=== PATIENT | male | born 1950 | race Caucasian/White ===

== ENCOUNTER 2021-10-23 09:57 | Outpatient (CLI) | payer MEDICARE, SELFPAY ==
--- OUTSIDE RECORDS SUMMARY | 2021-10-01 09:49 | XMS_ITS | Continuity of Care Document ---
:1950 Author Care Team Providers Name Role Phone MD Edvin Wheeler Attending Physician MD Edvin Wheeler Primary Care Physician Allergies, Adverse Reactions, Alerts Allergen Type Severity Reaction Last Updated Verified Status No Known Drug Allergy Unknown March Yes Active Allergy 2020 Social History Smoking Status Status Start Date End Date Date of Observat ion Never smoked tobacco April 022020 (finding) 8:56pm Additional Data Assigned Sex Male Problems Active Problems Medical Problem Onset Date Status Hypertension March 05, 2010 Active Hyperlipidemia March 05, 2010 Active Erectile dysfunction Active PSA elevation Active H/O bilateral inguinal hernia March 05, 2010 Resolved repair Medications Medication Status Dose Units Route Directions Qty Days Start End Ins tructions Date Date Amlodipine Active 5 MG PO Daily 90 Decembe Besylate r 2020 8:55am Aspirin Active 81 MG PO Daily 100 Atorvastatin Active 80 MG PO Bedtime 90 Decembe Calcium r 2020 8:55am Fish Oil Active 1000 MG PO Lisinopril Active 40 MG PO Daily 90 Decembe r 2020 8:55am Multiple Active Unknow PO Vitamins W/ n Dose Minerals (Vitamin D3 Complete) Unknown Strength TAB Tadalafil Active 5 MG PO Daily 30 Decembe (Cialis) 5 r 27th, Mg TAB 2020 8:56am Amlodipine Disconti 5 MG PO Daily 90 Februar Decemb Besylate nued y , er 2020, 1:15pm 2020 8:55am Amlodipine Disconti 5 MG PO Daily 90 Decembe Februa Besylate nued r , ry 2019, 8:54am 2020 1:15pm Amlodipine Disconti 5 MG PO Daily 90 January Decemb Besylate nued , er 2019, 4:20pm 2019 8:54am Amlodipine Disconti 5 MG PO Daily 90 August Besylate nued , r 2019, 1:43pm 2019 4:20pm Amlodipine Disconti 5 MG PO Daily 90 August Besylate nued r , , 2018 2019 9:23am 1:43pm Amlodipine Disconti 5 MG PO Daily November Besylate nued , er 2018, 11:23am 2018 9:23am Amlodipine Disconti 5 MG PO Daily 90 April Besylate nued , , 2018 2018 3:57pm 11:23a m Amlodipine Disconti 5 MG PO Daily Aprilua Besylate nued , y 2017, 1:25pm 2018 3:57pm Amlodipine Disconti 5 MG PO Daily 90 mbapruar Besylate nued r , y 2017 01, 1:58pm 2017 1:25pm Amlodipine Disconti 5 MG PO Daily Septembermb Besylate nued , er 2016 04, 12:01pm 2016 1:58pm Amlodipine Disconti 5 MG PO Daily June Besylate nued , , 2016 2016 12:22pm 12:01p m Amlodipine Disconti 5 MG PO Daily 90 June Besylate nued r , , 2015 2016 3:37pm 12:22p m Amlodipine Disconti 5 MG PO Daily 90 Decemb Besylate nued y , er 2015, 11:47am 2015 3:37pm Amlodipine Disconti 5 MG PO Daily 90 e Februa Besylate nued r 17, ry 2014 15th, 10:14am 2015 11:47a m Amlodipine Disconti 2.5 MG PO Daily 90 mbe Decemb Besylate nued r 27, er (Norvasc) 2012 31, 2.5 Mg TAB 10:34am 2013 9:15am Amlodipine Disconti 2.5 MG PO Daily 90 Novem Decemb Besylate nued r , er (Norvasc) 2012 27, 2.5 Mg TAB 11:30am 2012 10:34a m Amlodipine Disconti 2.5 MG PO Daily 90 Februar Novemb Besylate nued y , er ([facility]) 2012 20th, 2.5 Mg TAB 11:23am 2012 11:30a m Amlodipine Disconti 2.5 MG PO Daily Septemberua Besylate nued , ry ([facility]) 2011 12th, 2.5 Mg TAB 4:49pm 2012 11:23a m Amlodipine Disconti 5 MG PO Daily September gene chely [place] Besylate nued er , ([facility]) 14, 2012 Mg TAB 2010 4:49pm 4:09pm Amlodipine Disconti 2.5 MG PO Daily September Besylate nued r , ([facility]) 2010 2011 2.5 Mg TAB 3:59pm 4:49pm Amlodipine Disconti 2.5 MG PO Daily Besylate nued er , er ([facility]) 2010, 2.5 Mg TAB 12:45pm 2010 3:59pm Amlodipine Disconti 2.5 MG PO Daily August Besylate nued , ava ([facility]) 2010 04, 2.5 Mg TAB 9:42am 2010 12:45p m Aspirin Disconti 325 MG PO Daily Decemb nued er 2014 8:36am Atorvastatin Disconti 80 MG PO Bedtime Calcium nued y 17, er 2020, 1:15pm 2020 8:55am Atorvastatin Disconti 80 MG PO Bedtime Calcium nued r , ry 2019, 8:54am 2020 1:15pm Atorvastatin Disconti 80 MG PO Bedtime January Calcium nued th, er 2019, 10:43am 2019 8:54am Atorvastatin Disconti 80 MG PO Bedtime Augustobe P t to take 1 Calcium nued , r full tablet 2019, daily. 1:43pm 2019 10:32a m Atorvastatin Disconti 80 MG PO Bedtime 90 August Pt to take 1 Calcium nued r 17th, 4th, full table t 2018 2019 daily. 9:23am 1:43pm Atorvastatin Disconti 80 MG PO Bedtime November Pt to take 1 Calcium nued 1st, er full tablet 2018, daily. 11:23am 2018 9:23am Atorvastatin Disconti 80 MG PO Bedtime April Pt to take 1 Calcium nued , , full tablet 2018 2018 daily. 3:57pm 11:23a m Atorvastatin Disconti 80 MG PO Bedtime April Pt to take 1 Calcium nued , y full tablet 2017, daily. 1:25pm 2018 3:57pm Atorvastatin Disconti 80 MG PO Bedtime mb Pt to take 1 Calcium nued r 1st, y full tablet 2017 01, daily. 1:58pm 2017 1:25pm Atorvastatin Disconti 80 MG PO Bedtime 90 Junemb P t to take 1 Calcium nued nd, er full tablet 2016 04, daily. 12:01pm 2016 1:58pm Atorvastatin Disconti 40 MG PO Bedtime 30 Decemb Calcium nued er 2016 1:27pm Atorvastatin Disconti 80 MG PO Bedtime June Pt to take 1 Calcium nued r nd, , full table t 2015 2016 daily. 11:33am 12:01p m Atorvastatin Disconti 80 MG PO Bedtime Augustmb P t to take 1 Calcium nued 17th, er full tablet 2015, daily. 11:38am 2015 11:33a m Atorvastatin Disconti 80 MG PO Bedtime 90 August Pt to take 1 Calcium nued y 16th, 17th, full table t 2015 2015 daily. 9:20am 11:38a m Atorvastatin Disconti 80 MG PO Bedtime 90 [facility] Calcium nued r 31st, er (Lipitor) 80 2013 21st, Mg TAB 9:15am 2014 8:39am Atorvastatin Disconti 80 MG PO Bedtime 90 [facility] Calcium nued r 30th, er (Lipitor) 80 2012 31st, Mg TAB 1:39pm 2013 9:15am Atorvastatin Disconti 40 MG PO Bed[facility] Calcium nued r 27th, er 2012 17, 10:33am 2013 9:34am [facility]atin Disconti 40 MG [facility] 17th, er 2011, 8:18am 2012 10:33a m Garlic-Calci Disconti 400 MG OR Decemb um (Garlic) nued er 400 Mg TAB 2016 1:27pm Hydrochlorot Disconti 25 MG PO Daily Decemb hiazide nued er er , 2012 12:25pm 10:34a m Hydrochlorot Disconti 25 MG PO Daily 90 Octoberem hiazide nued , ava 2012, 10:53am 2012 12:25p m Hydrochlorot Disconti 25 MG PO Daily 90 October hiazide nued r 2011 9:47am 10:53a m Hydrochlorot Disconti 25 MG PO Daily Septembermb hiazide nued , er 2011, 4:49pm 2011 9:47am Hydrochlorot Disconti 25 MG PO Daily September hiazide nued 2011 9:56am 4:49pm Hydrochlorot Disconti 25 MG PO Daily August hiazide nued 2010 9:42am 9:56am Influenza Disconti 0.5 ML IM Once 1 mbe Decemb Virus nued r , er Vaccine 2017 , Split 1:41pm 2016 (Fluzone 2:14pm High-Dose Pf 2017 0.5 Ml) 1 Inj INJ Lisinopril Disconti 40 MG PO Daily 90 uar Decemb nued y , er 2020, 1:15pm 2020 8:55am Lisinopril Disconti 40 MG PO Daily 90 e Februa nued r , ry 2019, 8:54am 2020 1:15pm Lisinopril Disconti 40 MG PO Daily January Decemb nued , er 2019, 4:20pm 2019 8:54am Lisinopril Disconti 40 MG PO Daily August nued , r 2019, 1:43pm 2019 4:20pm Lisinopril Disconti 40 MG PO Daily 90 e August nued r , , 2018 2019 9:23am 1:43pm Lisinopril Disconti 40 MG PO Daily November Decemb nued , er 2018, 11:23am 2018 9:23am Lisinopril Disconti 40 MG PO Daily 90 April nued , , 2018 2018 3:57pm 11:23a m Lisinopril Disconti 40 MG PO Daily 90 Aprilr nued , y 2017, 1:25pm 2018 3:57pm Lisinopril Disconti 40 MG PO Daily 90 mbapruar nued r , y 2017 01, 1:58pm 2017 1:25pm Lisinopril Disconti 40 MG PO Daily 90 Junemb nued , er 2017 , 11:59am 2016 1:58pm Lisinopril Disconti 40 MG PO Daily 90 June nued r , , 2015 2016 11:33am 11:59a m Lisinopril Disconti 40 MG PO Daily 90 August nued , er 2016 , 9:28am 2015 11:33a m Lisinopril Disconti 40 MG PO Daily 90 August nued y , , 2015 2015 11:08am 9:28am Lisinopril Disconti 40 MG PO Daily 90 mbua nued r 31, ry 2013 16, 9:14am 2015 11:08a m Lisinopril Disconti 40 MG PO Daily 90 mb [facility] nued r 27, er 2012 31, 10:34am 2013 9:14am Lisinopril Disconti 40 MG PO Daily 90 October nued 18th, er 2012 27, 10:03am 2012 10:34a m Lisinopril Disconti 40 MG PO Daily 90 April nued , , 2012 2012 12:41pm 10:03a m Lisinopril Disconti 40 MG PO Daily 90 September nued , y 2011 14, 4:49pm 2012 12:41p m Lisinopril Disconti 40 MG PO Daily 90 September nued er , 2010 12:45pm 4:49pm Lisinopril Disconti 40 MG PO Daily 30 November nued , 2010, 11:03am 2010 12:45p m Lisinopril Disconti 40 MG PO Daily 30 mbnovember nued r , 2009 9:28am 11:03a m Lisinopril Disconti 20 MG PO Daily August (Zestril) 20 nued r , 9th, Mg TAB 2009 2010 10:20am 8:54am Pneumococcal Disconti 0.5 ML IM Once 1 [facility] Polyvalent nued r , er Vaccine 2014, (Prevnar 13) 9:16am 2014 0.5 Ml INJ 9:24am Pneumococcal Disconti 0.5 ML IM Once 1 [facility] Polyvalent nued r , er Vaccine 2010, (Pneumovax-2 10:08am 2010 3 Multidose 10:25a Vial) 23 m Mcg/0.5 Ml INJ Red Yeast Disconti OR Decemb Rice Extract nued er (Red Yeast , Rice) CAP 2016 1:27pm Rice Yeast Disconti August nued 2010 8:58am Simvastatin Disconti 1 TABLET PO Bedtime June (Zocor) 40 nued , , Mg TAB 2011 2011 11:11am 4:49pm Simvastatin Disconti 1 TABLET PO Bedtime June (Zocor) 40 nued er , , Mg TAB 2010 2011 10:21am 11:11a m Simvastatin Disconti 1 TABLET PO Bedtime September (Zocor) 40 nued 2nd, ava Mg TAB 2010 04, 3:03pm 2010 10:21a m Simvastatin Disconti 1 TABLET PO Bedtime September (Zocor) 40 nued r 30, , Mg TAB 2009 2010 9:34am 3:03pm Tadalafil Disconti 5 MG PO Daily September (Cialis) 5 nued , er Mg TAB 2020, 1:21pm 2020 8:56am Tadalafil Disconti 5 MG PO Daily April (Cialis) 5 nued , , Mg TAB 2020 2020 9:54am 1:21pm Tadalafil Disconti 5 MG PO Daily September (Cialis) 5 nued , y Mg TAB 2019, 3:35pm 2020 9:54am Tadalafil Disconti 5 MG PO Daily September (Cialis) 5 nued r 17th, 5th, Mg TAB 2013 2019 10:12am 3:35pm Tadalafil Disconti 20 MG PO As Needed 8 Decee [facility] TAKE ONE (Cialis) 20 nued r 27th, er TABLET 30 MIN Mg TAB 2012 31, TO 36 HRS 10:33am 2013 PRIOR TO 9:15am INTERCOURSE Tadalafil Disconti 20 MG PO As Needed October TA KE ONE (Cialis) 20 nued 3rd, er TABLET 3 0 MIN Mg TAB 2012, TO 36 HRS 9:35am 2012 PRIOR TO 10:33a INTERCOURSE m Tadalafil Disconti 20 MG PO As Needed September LOUIE E ONE (Cialis) 20 nued 20th, 3rd, TABLET 3 0 MIN Mg TAB 2011 2012 TO 36 HRS 2:19pm 9:35am PRIOR TO INTERCOURSE Tadalafil Disconti 20 MG PO As Needed September T CHARLA ONE (Cialis) 20 nued er 20th, TABLET 3 0 MIN Mg TAB 2011 TO 36 HRS 2010 2:19pm PRIOR TO 4:13pm INTERCOURSE Tetanus-Diph Disconti 0.5 ML IM Once 1 [facility] theria nued r 17th, er Toxoids (Td 2018, (Tetanus/Dip 9:31am 2018 htheria 9:40am Toxoid) 1 Ml INJ Zostavax Disconti 0.65 ML SUBQ Once 1 [facility] nued r 21st, er 2010, 10:10am 2010 10:25a m Immunizations Immunization Event Date Not Given Dose Copier Operator Lot Vac cine Reason Number Number Informatio n Statement (VIS) Deta il COVID-19 Pfizer May 082020 COVID-19 Pfizer June 22, 2020 COVID-19 Pfizer January 17, 2020 Herpes Zoster March 07 Merck [id number] 2010 Influenza December 062013 Influenza January 25, 2014 Influenza December 082015 Influenza March 07 Sanofi 2016 Influenza December 102017 Influenza December 112018 Influenza December 122019 Influenza April 28, 2020 Prevnar Adult March 07 ORTHOM [id number] 2014 Pneumovax Adult March 07 Merck [id number] 2010 Pneumovax Adult December 07 [id number] 2018 Tetanus/Diptheri March 07 MASS BIOLO [id number] a 2018 Tdap July 15 (adolescent/adul 2009 t) Advance Directives Advance Directive Response Recorded Date/Time Does Pt have Health Care No April 05, 2015 9:31am Directive? Has patient completed a N - info provided 03/07/17 March 082020 8:56pm Health Care Directive? Insurance Providers Guarantor [employer] Address [address] [place] [id number] Contact Info. Home Phone: Payer Policy Id Coverage Id Subscriber's Subscriber Id Effective E xpiration Name Date Date Medicare [id number] [employer] [address] [facility] [id number] [employer] [id number] D Plan of Treatment Future Tests Future scheduled test information is unavailable Pending Tests Pending diagnostic test information is unavailable Future Visits Future appointment information is unavailable Referrals to Other Providers Referral information is unavailable Future Procedures Procedure Name Scheduled Date Colonoscopy Screening Future Medications Future medication information is unavailable Patient Instructions Patient instructions are unavailable
== END 2021-10-23 09:58 | disposition home or self-care (01) ==
LOC: OP CLINIC 09:59
PROVIDERS: PCP Family Medicine; Visit Provider Surgery
DX: Z12.11 Encounter for screening for malignant neoplasm of colon (principal); K62.1 Rectal polyp; K57.30 Diverticulosis of large intestine without perforation or abscess without bleeding
CPT/HCPCS: 45385; 88305; 99153; J2250; J3010

== ENCOUNTER 2021-12-03 14:36 | Outpatient (CLI) | payer MEDICARE, SELFPAY ==
[2021-12-03 18:01] LABS: PSA Diagnostic* 4.52 ng/mL (0.10-4.00)
== END 2021-12-03 14:37 | disposition home or self-care (01) ==
LOC: LONREF 14:38
PROVIDERS: PCP Family Medicine; Visit Provider Family Medicine
DX: R97.20 Elevated prostate specific antigen [PSA] (principal)
CPT/HCPCS: 84153

== ENCOUNTER 2021-12-18 23:41 | Emergency (ER) | payer MEDICARE, SELFPAY ==
[2021-12-18 23:46] VITALS: BP 133/104; PULSE 54; RESP 20; O2SAT 99; BMI 31.2
--- NOTE | 2021-12-19 00:12 | CRLHL7_ITS ---
For Patients: As a result of the Century Cures Act, medical imaging exams and procedure reports are released immediately into your electronic medical record. You may view this report before your referring provider. If you have questions, please contact your health care provider. INDICATION: Abdominal pain. Right lower quadrant pain. Nausea, vomiting. Elevated troponin. COMPARISON: None available TECHNIQUE: CT examination of the abdomen and pelvis was performed with the uneventful intravenous administration of 99 cc of Isovue 370 while 3 mm thick axial sections were obtained from the lung bases through the pubic symphysis. Oral contrast was not administered. Please note that all CT scans at this facility use dose modulation, iterative reconstruction, and/or weight-based dosing when appropriate to reduce radiation dose to as low as reasonably achievable. FINDINGS: In the abdomen, the liver, spleen, pancreas, and adrenals are normal in appearance. Incidental note is made of small cortical cysts in the left kidney of no clinical concern. The gallbladder is normal in appearance. The abdominal aorta is normal in caliber with no sign of dilatation. There is no sign of retroperitoneal mass or adenopathy. The stomach, loops of small bowel, and colon in the abdomen are normal in appearance. In the pelvis, the appendix is normal in appearance with no sign of inflammatory process. There is severe sigmoid diverticulosis without evidence of diverticulitis. The loops of small bowel and rectum in the pelvis are otherwise normal in appearance. The prostate is moderately enlarged and is otherwise normal in appearance. The urinary bladder is normal in appearance. There is no sign of pelvic or inguinal mass or adenopathy. There is no sign of free air or free fluid in the abdomen or pelvis. The lung bases are clear. The osseous structures are normal in appearance for the patient`s age. IMPRESSION: Nothing seen to explain the patient`s right lower quadrant pain, nausea, or vomiting. Normal appearance of the appendix and right urinary system. No sign of bowel dilatation or inflammatory process involving the bowel. CT of the abdomen shows incidental finding of left renal cysts. CT of the pelvis shows severe sigmoid diverticulosis with no sign of diverticulitis. Moderate enlargement of the prostate. Please note that all CT scans at this facility use dose modulation, iterative reconstruction, and/or weight-based dosing when appropriate to reduce radiation dose to as low as reasonably achievable. Dictated by Valeriy Lopez MD @ 12/19/2021 3:04:12 AM (Electronically Signed)
--- NOTE | 2021-12-19 00:16 | ED_ITS ---
HPI - General Adult General Date Seen: 12/19/21 Chief complaint: Abdominal Pain Stated complaint: Abdominal pain Time Seen by Provider: 12/18/21 23:46 Source: patient and family Mode of arrival: ambulatory Limitations: no limitations History of Present Illness HPI narrative: Patient is a 71-year-old male who was brought in by his with 1 hour of severe pain in the right side of his abdomen. He was just sitting and watching TV when this came about. In [place] for dinner. No nausea or vomiting. He had a normal bowel movement this morning. He has never had pain like this prev iously. He has been struggling with some pain in his right groin but this clearly separate from that no dysuria, urgency, frequency. No hematuria. No black or bloody stools. No previous abdominal surgery. He has had a previous hernia repair. No fevers or chills. No URI symptoms. He cannot describe the pain other than to say it is severe. Related Data Home Medications Medication Instructions Recorded Confirmed amlodipine 5 mg tablet 5 mg PO DAILY 12/03/21 12/19/21 aspirin 81 mg chewable tablet 81 mg PO DAILY 12/03/21 12/19/21 atorvastatin 80 mg tablet 80 mg PO .Bedtime 12/03/21 12/19/21 cholecalciferol (vitamin D3) 10 10 mcg PO QDAY 12/03/21 12/19/21 mcg (400 unit) capsule glucosamine sulfate 500 mg tablet 500 mg PO QDAY 12/03/21 12/19/21 (Glucosamine) lisinopril 40 mg tablet 40 mg PO DAILY 12/03/21 12/19/21 multivitamin 1 tab PO QDAY 12/03/21 12/03/21 omega 0-lgk-arn-fish oil 1,000 mg 1 cap PO QDAY 12/03/21 12/03/21 (120 mg-180 mg) capsule (Fish Oil) tadalafil 5 mg tablet 5 mg PO DAILY 12/03/21 12/03/21 Previous Rx's Medication Instructions Recorded methylprednisolone 4 mg tablets in See Rx Instructions PO PER PKG DIR 12/12/21 a dose pack (Medrol (Alfred)) #21 ea tramadol 50 mg tablet 50 mg PO Q6H PRN pain #30 tabs 12/12/21 Allergies Allergy/AdvReac Type Severity Reaction Status Date / Time No Known Drug Allergies Allergy Verified 12/19/21 01:57 Review of Systems Status of ROS: Reports: 10 or more systems reviewed and unremarkable except as noted in History and below [facility] Medical History (Updated 12/19/21 @ 03:11 by Rdoolfo Haney MD) Erectile dysfunction High prostate specific antigen (PSA) Hyperlipidemia (03/05/10) Hypertension (03/05/10) Surgical History History of bilateral inguinal hernia repair (03/05/10) Family History Other Colonic polyp Social History Smoking Status: Former smoker Do you use any of these nicotine containing products: None Second hand tobacco smoke exposure: No How often do you have a drink containing alcohol: never AUDIT-C Alcohol total score: 0 Non-prescribed substance use: denies use Exam Narrative: Exam Narrative: Vitals noted. HEENT: Conjunctiva clear. Neck is supple without adenopathy, thyromegaly, carotid bruit. Lungs: Clear to auscultation in all beverly. No wheezes, rales, rhonchi. Heart: Regular rate and rhythm without murmur. Abdomen: He has tenderness in the right mid and lower quadrants. No guarding. No rebound tenderness. Bowel sounds are normal. No palpable masses , specifically no pulsatile. Extremities: No cyanosis or edema. Good distal pulses. Skin: No abnormalities noted of the exposed skin. Neurologic: Awake, alert, fully oriented. Neurologic exam is nonfocal. Const: Vital Signs, click to edit/add: Vital Signs - 24 hr 12/18/21 23:46 12/19/21 01:23 12/19/21 02:00 Pulse Rate [Left P ulse Oximeter] 54 L 86 74 Respiratory Rate 20 14 16 Blood Pressure [Ri ght Upper Arm] 133/104 H 169/114 H 148/89 H Pulse Oximetry 99 99 98 Oxygen Delivery Me thod Room Air Room Air Documenting provider has reviewed patient's vital signs: yes Course Course Hospital Course: Patient was seen and examined. He has significant pain in the right middle and lower quadrants. Fentanyl 50 mcg is ordered and repeated x1. Lab and CT are ordered. The fentanyl did not improve his pain significantly and he was given Dilaudid 0.5 mg. 1 L of normal saline is also ordered. We are waiting for CT as they are currently assisting with a baby being resuscitated which is delaying his imaging studies. EKG showed normal sinus rhythm with a rate of 67. Frequent PVCs. No ischemic changes. Point of care troponin is 0.2. Reevaluation(s) Reevaluation #1: On the way to CT the patient tells numerous times and felt somewhat better. CT of his abdomen was unremarkable. Chest x-ray was also unremarkable. We repeated his point of care troponin as the initial one was mildly elevated. This returned at 0.00. Vital Signs Vital signs: Initial Vital Signs Pulse Rate 54 L 12/18/21 23:46 Respiratory Rate 20 12/18/21 23:46 Blood Pressure 133/104 H 12/18/21 23:46 Blood Pressure Mean 113 12/18/21 23:46 Blood Pressure Position Supine 12/18/21 23:46 Pulse Oximetry 99 12/18/21 23:46 Oxygen Delivery Method 12/18/21 23:46 Vital Signs Pulse Rate 54 L 12/18/21 23:46 Respiratory Rate 20 12/18/21 23:46 Blood Pressure 133/104 H 12/18/21 23:46 Pulse Oximetry 99 12/18/21 23:46 Oxygen Delivery Method 12/18/21 23:46 Pulse Rate 74 12/19/21 02:00 Respiratory Rate 16 12/19/21 02:00 Blood Pressure 148/89 H 12/19/21 02:00 Pulse Oximetry 98 12/19/21 02:00 Oxygen Delivery Method 12/19/21 02:00 Medical Decision Making Lab Data Labs: Lab Results 12/19/21 12/19/21 12/19/21 Range/Units 00:00 00:00 01:25 WBC 10.33 (4.50-11.00) K/uL RBC 4.77 (4.30-5.90) m/uL Hgb 15.1 (13.5-17.5) gm/dL Hct 44.8 (37.0-53.0) % MCV 94 (80-100) fL MCH 32 (26-34) pg MCHC 34 (32-36) gm/dL RDW Coeff of Sandra 12.5 (11.5-15.5) % Plt Count 232 (140-440) K/uL Neut % (Auto) 50.4 (42.0-72.0) % Lymph % (Auto) 38.1 (20-44) % Parker % (Auto) 8.8 (0.0-11.0) % Eos % (Auto) 1.6 (0.0-7.0) % Baso % (Auto) 0.5 (0.0-3.0) % Neut # (Auto) 5.20 (1.7-7.0) K/uL Lymph # (Auto) 3.94 H (0.90-2.90) K/uL Parker # (Auto) 0.90 (0.00-0.90) K/UL Eos # (Auto) 0.17 (0.00-0.50) K/uL Baso # (Auto) 0.05 (0.00-0.30) K/uL Abs Immat Gran (auto) 0.06 (0.00-0.30) K/uL Sodium 138 (135-149) mmol/L Potassium 3.5 L (3.6-5.1) mmol/L Chloride 102 (96-114) mmol/L Carbon Dioxide 25 (20-32) mmol/L BUN 26 (7-30) mg/dL Creatinine 1.0 (0.5-1.5) mg/dL Estimated Creat Clear 74.37 Estimated GFR 80 ml/min Glucose 155 H (60-115) mg/dL Calcium 9.6 (8.4-10.6) mg/dL Total Bilirubin 0.8 (0.1-1.5) mg/dL Direct Bilirubin 0.2 (0.0-0.5) mg/dL AST 34 (12-35) U/L ALT 30 (4-50) U/L Alkaline Phosphatase 81 (40-150) U/L Total Protein 8.3 (6.0-8.3) g/dL Albumin 4.9 (3.3-5.0) g/dL Lipase 80 (23-300) U/L Urine Color Yellow (Yellow) Urine Appearance Clear (Clear) Urine pH 6.0 (5.0-8.5) Ur Specific [place] 1.025 (1.000-1.030) Urine Protein Negative (Negative) Urine Glucose (UA) Negative (Negative) Urine Ketones 2+ A (Negative) Urine Blood Trace-lysed A (Negative) Urine Nitrite Negative (Negative) Urine Bilirubin Negative (Negative) Urine Urobilinogen 0.2 (0.2-1.0) Ur Leukocyte Esterase Negative (Negative) Urine RBC 0-2 (0-2) Urine WBC 0-2 (0-5) Ur Squamous Epith Cells Few (None-Few) Urine Bacteria Few A (None) Urine Mucus Few A (None) Discharge Plan Discharge Clinical Impression: Indigestion Patient Disposition: Home, Self-Care Condition: Improved Additional Instructions: Stephens diet. Push fluids. Tylenol for pain. Gas-X for gas. Follow up if symptoms recur. Prescriptions: No Action aspirin 81 mg tablet,chewable 81 mg PO DAILY multivitamin Tablet 1 tab PO QDAY atorvastatin 80 mg tablet 80 mg PO .Bedtime amlodipine 5 mg tablet 5 mg PO DAILY lisinopril 40 mg tablet 40 mg PO DAILY tadalafil 5 mg tablet 5 mg PO DAILY omega 6-vsm-cwk-fish oil [Fish Oil] 1,000 mg (120 mg-180 mg) capsule 1 cap PO QDAY cholecalciferol (vitamin D3) 10 mcg (400 unit) capsule 10 mcg PO QDAY glucosamine sulfate [Glucosamine] 500 mg tablet 500 mg PO QDAY Rx Instructions: administer with a meal tramadol 50 mg tablet 50 mg PO Q6H PRN (Reason: pain) Qty: 30 1RF methylprednisolone [Medrol (Alfred)] 4 mg tablets,dose pack See Rx Instructions PO PER PKG DIR Qty: 21 0RF Rx Instructions: PO PER PKG DIR Follow Up/Referrals: Pérez Wheeler MD [Primary Care Provider] - [facility]
[2021-12-19] MEDS: fentaNYL 100 MCG/2 ML inj 50 MCG IVP ×2 (00:18→00:54)
[2021-12-19 00:19] LABS: Basophils Absolute Auto 0.05 K/uL (0.00-0.30); Basophils Percent Auto 0.5 % (0.0-3.0); Eosinophils Absolute Auto 0.17 K/uL (0.00-0.50); Eosinophils Percent Auto 1.6 % (0.0-7.0); Hematocrit 44.8 % (37.0-53.0); Hemoglobin* 15.1 gm/dL (13.5-17.5); Immature Granulocytes Abs Auto 0.06 K/uL (0.00-0.30); Lymphocytes Absolute Auto 3.94 K/uL (0.90-2.90); Lymphocytes Percent Auto 38.1 % (20-44); Mean Corpuscular HGB Conc 34 gm/dL (32-36); Mean Corpuscular Hemoglobin 32 pg (26-34); Mean Corpuscular Volume 94 fL (80-100); Monocytes Percent Auto 8.8 % (0.0-11.0); Neutrophils Percent Auto 50.4 % (42.0-72.0); Platelet Count* 232 K/uL (140-440); RDW Coefficient of Variation % 12.5 % (11.5-15.5); Red Blood Count 4.77 m/uL (4.30-5.90); White Blood Count* 10.33 K/uL (4.50-11.00)
[2021-12-19] MEDS: 0.9 % SODIUM CHLORIDE 1000 ml 1,000 ML IV (00:19)
--- NOTE | 2021-12-19 00:26 | CRLHL7_ITS ---
For Patients: As a result of the Century Cures Act, medical imaging exams and procedure reports are released immediately into your electronic medical record. You may view this report before your referring provider. If you have questions, please contact your health care provider. INDICATION: Positive troponin TECHNIQUE: Two view chest. FINDINGS: The lungs are clear. The heart, mediastinum and pulmonary vessels are of normal size. There is no evidence of pleural disease. IMPRESSION: Negative chest. Dictated by Marylin Marrero MD @ 12/19/2021 2:59:51 AM (Electronically Signed)
[2021-12-19 00:27] LABS: Slide Review Reflex No
[2021-12-19 00:31] LABS: Albumin* 4.9 g/dL (3.3-5.0); Chloride* 102 mmol/L (96-114)
[2021-12-19 00:32] LABS: Potassium* 3.5 mmol/L (3.6-5.1); Sodium* 138 mmol/L (135-149)
[2021-12-19 00:34] LABS: Bilirubin Direct* 0.2 mg/dL (0.0-0.5); Bilirubin Total* 0.8 mg/dL (0.1-1.5); Carbon Dioxide* 25 mmol/L (20-32); Est. Creatinine Clearance* 74.37; Estimated Glomerular Filt Rate 80 ml/min
--- NOTE | 2021-12-19 00:34 | ED.NURSE ---
POC troponin ran while prior to receiving MD orders. Result 0.21, MD notified at 1215.
[2021-12-19 00:35] LABS: Alanine Aminotransferase* 30 U/L (4-50); Alkaline Phosphatase* 81 U/L (40-150); Aspartate Amino Transferase* 34 U/L (12-35); Blood Urea Nitrogen* 26 mg/dL (7-30); Calcium* 9.6 mg/dL (8.4-10.6); Glucose* 155 mg/dL (60-115); Lipase* 80 U/L (23-300); Total Protein* 8.3 g/dL (6.0-8.3)
[2021-12-19] MEDS: HYDROmorphone 0.5 mg/0.5 ml inj IVP (01:13)
[2021-12-19 01:23] VITALS: BP 169/114; PULSE 86; RESP 14; O2SAT 99
[2021-12-19] MEDS: ONDANSETRON 2 MG/ML inj 4 MG IVP (01:31)
[2021-12-19 01:38] LABS: Appearance Urine Clear (Clear); Bilirubin Urine Negative (Negative); Blood Urine Trace-lysed (Negative); Color Urine Yellow (Yellow); Glucose Urine Negative (Negative); Ketones Urine 2+ (Negative); Leukocyte Esterase Urine Negative (Negative); Nitrite Urine Negative (Negative); Protein Urine Negative (Negative); Specific Gravity Urine 1.025 (1.000-1.030); Urobilinogen Urine 0.2 (0.2-1.0)
[2021-12-19 01:55] LABS: RBC Urine 0-2 (0-2)
[2021-12-19 01:56] LABS: Bacteria Urine Few; Mucus Urine Few; Squamous Epithelial Cell Urine Few (None-Few); WBC Urine 0-2 (0-5)
[2021-12-19 02:00] VITALS: BP 144/97; BP 148/89; PULSE 70; PULSE 74; RESP 16; O2SAT 97; O2SAT 98
[2021-12-19 03:00] VITALS: BP 136/93; PULSE 64; RESP 16; O2SAT 97
[2021-12-19 03:30] VITALS: BP 111/70; PULSE 76; RESP 16; O2SAT 96
[2021-12-19 03:39] LABS: Troponin, Point-of-Care* 0.21 ng/ml (0.01-0.04)
== END 2021-12-19 03:40 | disposition home or self-care (01) ==
PROVIDERS: Emergency Provider Family Medicine; PCP Family Medicine
DX: R10.9 Unspecified abdominal pain (principal)
CPT/HCPCS: 36415; 71046; 74177; 80048; 80076; 81003; 81015; 83690; 84484; 85025; 87086; 93005; 96374; 96375; 96376; 99284; 99285; J1170; J2405; J3010; J7030; Q9967

== ENCOUNTER 2021-12-27 10:08 | Emergency (ER) | payer MEDICARE, SELFPAY ==
[2021-12-27 10:24] VITALS: BP 124/89; PULSE 84; RESP 18; TEMP 36.1; O2SAT 99; BMI 29.8
--- NOTE | 2021-12-27 10:28 | ED_ITS ---
HPI - General Adult General Time Seen by Provider: 10:45 Date Seen: 12/27/21 Chief complaint: Back Injury/Pain Stated complaint: Severe back pain Time Seen by Provider: 12/27/21 10:28 Source: patient History of Present Illness HPI narrative: Solo is a 71-year-old male past medical history includes hypertension, hyperlipidemia presents emerged department with with worsening lower back pain. Patient states that around 3 weeks ago he developed some right lower back pain. Pain is on the right side lower lumbar area and radiates down his buttock to the top of his right thigh extending to his knee. Patient denies any urinary or bowel incontinence or retention, he has been doctoring with his primary put him on gabapentin as well as steroid taper. He denies any injury 3 weeks ago, he did get back from [place] just recently and was doing fine there. Denies any lower extremity weakness, paresthesia or numbness, he did not sleep at all last night due to the pain. He has been seeing a chiropractor as well over the last 2 weeks. He denies any other concerns at this time. Related Data Home Medications Medication Instructions Recorded Confirmed amlodipine 5 mg tablet 5 mg PO DAILY 12/03/21 12/19/21 aspirin 81 mg chewable tablet 81 mg PO DAILY 12/03/21 12/19/21 atorvastatin 80 mg tablet 80 mg PO .Bedtime 12/03/21 12/19/21 cholecalciferol (vitamin D3) 10 10 mcg PO QDAY 12/03/21 12/19/21 mcg (400 unit) capsule glucosamine sulfate 500 mg tablet 500 mg PO QDAY 12/03/21 12/19/21 (Glucosamine) lisinopril 40 mg tablet 40 mg PO DAILY 12/03/21 12/19/21 multivitamin 1 tab PO QDAY 12/03/21 12/03/21 omega 4-iwl-vlp-fish oil 1,000 mg 1 cap PO QDAY 12/03/21 12/03/21 (120 mg-180 mg) capsule (Fish Oil) tadalafil 5 mg tablet 5 mg PO DAILY 12/03/21 12/03/21 Previous Rx's Medication Instructions Recorded tramadol 50 mg tablet 50 mg PO Q6H PRN pain #30 tabs 12/12/21 methylprednisolone 4 mg tablets in See Rx Instructions PO PER PKG DIR 12/21/21 a dose pack (Medrol (Alfred)) #21 ea oxycodone-acetaminophen 5 mg-325 1 tab PO Q6H PRN pain #10 tabs 12/27/21 mg tablet (Percocet) Allergies Allergy/AdvReac Type Severity Reaction Status Date / Time No Known Drug Allergies Allergy Verified 12/19/21 01:57 Review of Systems Status of ROS: Reports: 10 or more systems reviewed and unremarkable except as noted in History and below [facility] Medical History (Updated 12/27/21 @ 13:11 by Laurent Bell MD) Erectile dysfunction High prostate specific antigen (PSA) Hyperlipidemia (03/05/10) Hypertension (03/05/10) Surgical History History of bilateral inguinal hernia repair (03/05/10) Family History Other Colonic polyp Social History Smoking Status: Former smoker Do you use any of these nicotine containing products: None Second hand tobacco smoke exposure: No How often do you have a drink containing alcohol: never AUDIT-C Alcohol total score: 0 Non-prescribed substance use: denies use service: No Exam Narrative: Exam Narrative: General: Mild distress, sitting comfortably HEENT: Pupils equal round reactive to light, extraocular muscles intact Neck: Supple, full range of motion Lungs: Clear to auscultation bilaterally Heart: Normal sinus rhythm S1-S2 Abdomen: Soft, nontender bowel sounds present Muscle skeletal: Tender to palpation the right lower lumbar paraspinal musculature, L5-S1, nontender to palpation the midline, no step-offs or saddle anesthesia, straight leg raise and crossover at 20? negative bilaterally, +5 strength lower extremities bilaterally, CMS intact. Neuro: Alert, awake and oriented x3, gait within normal limits Const: Vital Signs, click to edit/add: Vital Signs - 24 hr 12/27/21 10:24 Temperature 97.0 F L Pulse Rate [Right Pulse Oximeter] 84 Respiratory Rate 18 Blood Pressure [Ri ght Upper Arm] 124/89 Pulse Oximetry 99 Oxygen Delivery Me thod Room Air Course Course Hospital Course: 10:30 AM: AIDET performed. No worrisome findings on exam, plan to place IV, 50 mg IV Toradol and 4 mg IV morphine for his pain, will be able to set up a MR lumbar spine without contrast, likely discharge home. Patient and were in agreement Reevaluation(s) Reevaluation #1: MRI lumbar spine without contrast: 1. At L2-3, right subarticular cranial disc extrusion displacing/compressing the transiting right L2 nerve root. Superimposed disc bulge and facet arthropathy contribute to moderate spinal canal stenosis at this level. 2. Additional mild spondylitic changes and mild foraminal narrowing elsewhere as detailed. patient was given additional 10 mg IV Decadron, 5 mg IV Valium for pain. To add 0.5 mg IV Dilaudid if no improvement. Plan have patient see Ivory JO the next few days for consideration for spinal injection. Reevaluation #2: Patient is feeling better after above care given, he is ambulating with no difficulties, a followup appointment was scheduled with his primary care provider tomorrow at 11:15 a.m., proper referrals can be made at that time, will continue with tramadol 5200 mg every 6 hours as needed for pain, he was given a short course of Percocet 5/325 mg, 1 tablet every 4-6 hours for breakthrough pain. Reasons to return were given. Time: 13:09 Vital Signs Vital signs: Initial Vital Signs Temperature 97.0 F L 12/27/21 10:24 Temperature Source Temporal Artery Scan 12/27/21 10:24 Pulse Rate 84 12/27/21 10:24 Respiratory Rate 18 12/27/21 10:24 Blood Pressure 124/89 12/27/21 10:24 Blood Pressure Mean 100 12/27/21 10:24 Blood Pressure Position Sitting 12/27/21 10:24 Pulse Oximetry 99 12/27/21 10:24 Oxygen Delivery Method 12/27/21 10:24 Vital Signs Temperature 97.0 F L 12/27/21 10:24 Pulse Rate 84 12/27/21 10:24 Respiratory Rate 18 12/27/21 10:24 Blood Pressure 124/89 12/27/21 10:24 Pulse Oximetry 99 12/27/21 10:24 Oxygen Delivery Method 12/27/21 10:24 Temperature 97.0 F L 12/27/21 10:24 Pulse Rate 84 12/27/21 10:24 Respiratory Rate 18 12/27/21 10:24 Blood Pressure 124/89 12/27/21 10:24 Pulse Oximetry 99 12/27/21 10:24 Oxygen Delivery Method 12/27/21 10:24 Discharge Plan Discharge Clinical Impression: Intervertebral disc extrusion, Compression of lumbar nerve root Patient Disposition: Home, Self-Care Condition: Improved Instructions: Lower Back Exercises (ED) Additional Instructions: Pt has Follow up appt on Tuesday, December 28, [address] Wheeler at the [facility] with check in time at 11:15am Prescriptions: New oxycodone-acetaminophen [Percocet] 5-325 mg tablet 1 tab PO Q6H PRN (Reason: pain) Qty: 10 0RF No Action aspirin 81 mg tablet,chewable 81 mg PO DAILY multivitamin Tablet 1 tab PO QDAY atorvastatin 80 mg tablet 80 mg PO .Bedtime amlodipine 5 mg tablet 5 mg PO DAILY lisinopril 40 mg tablet 40 mg PO DAILY tadalafil 5 mg tablet 5 mg PO DAILY omega 9-npz-zpa-fish oil [Fish Oil] 1,000 mg (120 mg-180 mg) capsule 1 cap PO QDAY cholecalciferol (vitamin D3) 10 mcg (400 unit) capsule 10 mcg PO QDAY glucosamine sulfate [Glucosamine] 500 mg tablet 500 mg PO QDAY Rx Instructions: administer with a meal tramadol 50 mg tablet 50 mg PO Q6H PRN (Reason: pain) Qty: 30 1RF methylprednisolone [Medrol (Alfred)] 4 mg tablets,dose pack See Rx Instructions PO PER PKG DIR Qty: 21 0RF Rx Instructions: PO PER PKG DIR Follow Up/Referrals: Pérez Wheeler MD [Primary Care Provider] - Stand Alone Forms: MyHealth Info Instructions
--- NOTE | 2021-12-27 10:41 | CRLHL7_ITS ---
For Patients: As a result of the Century Cures Act, medical imaging exams and procedure reports are released immediately into your electronic medical record. You may view this report before your referring provider. If you have questions, please contact your health care provider. Indication: Low back pain, right lumbar radiculopathy Technique: Multiplanar, multisequence, MRI of the lumbar spine, obtained without contrast. Comparison: CT abdomen 12/19/2021 Findings: The lumbar lordosis is preserved. Grade 1 anterolisthesis at L2-3. Visualized vertebral body heights are grossly maintained. No evidence of acute fracture or focal compression deformity. Intrinsic bone marrow signal appears within normal limits. No aggressive osseous lesions. The conus medullaris terminates at approximately L1. No suspicious findings in the prevertebral and paraspinal soft tissues. Bilateral renal cysts. Included SI joints are unremarkable. T12-L1: No significant neural foramen or spinal canal stenosis. L1-L2: Shallow disc bulge. No significant foraminal or spinal canal stenosis. L2-L3: Right subarticular cranial disc extrusion contacting/compressing the transiting right L2 nerve root. Superimposed diffuse disc bulge and facet arthropathy, with mild bilateral foraminal narrowing and moderate spinal canal stenosis. L3-L4: Diffuse disc bulge. Mild left foraminal narrowing. No spinal canal stenosis. L4-L5: Diffuse disc bulge, facet arthropathy. Mild left foraminal narrowing. No spinal canal stenosis. L5-S1: Diffuse disc bulge, facet arthropathy. Mild bilateral foraminal narrowing. No spinal canal stenosis. Impression: 1. At L2-3, right subarticular cranial disc extrusion displacing/compressing the transiting right L2 nerve root. Superimposed disc bulge and facet arthropathy contribute to moderate spinal canal stenosis at this level. 2. Additional mild spondylitic changes and mild foraminal narrowing elsewhere as detailed. Dictated by Jordana Mitchell MD @ 12/27/2021 11:40:40 AM (Electronically Signed)
[2021-12-27] MEDS: MORPHINE 4 MG/ML INJ IVP (11:32)
[2021-12-27] MEDS: KETOROLAC 15 MG/ML inj IVP (11:32)
[2021-12-27] MEDS: dexAMETHasone 10 MG/ML inj IVP (11:55)
[2021-12-27] MEDS: diazePAM 5 MG/ML inj IV (11:55)
[2021-12-27] MEDS: HYDROmorphone 0.5 mg/0.5 ml inj IVP (12:16)
== END 2021-12-27 13:40 | disposition home or self-care (01) ==
PROVIDERS: Emergency Provider Student in an Organized Health Care Education/Training Program; PCP Family Medicine
DX: M51.26 Other intervertebral disc displacement, lumbar region (principal); M51.06 Intervertebral disc disorders with myelopathy, lumbar region
CPT/HCPCS: 72148; 96374; 96375; 99283; 99284; J1100; J1170; J1885; J2270; J3360

== ENCOUNTER 2023-01-02 15:17 | Outpatient (CLI) | payer MEDICARE, SELFPAY ==
--- NOTE | 2023-01-02 15:30 | CRLHL7_ITS ---
For Patients: As a result of the Century Cures Act, medical imaging exams and procedure reports are released immediately into your electronic medical record. You may view this report before your referring provider. If you have questions, please contact your health care provider. Indication: Low back pain. Technique: Multiplanar, multisequence MRI of the lumbar spine was performed without intravenous contrast. Comparison: None relevant available. Findings: There are 5 lumbar type vertebral segments identified. The vertebral body heights are maintained without evidence of fracture. There is no discrete T1 hypointense marrow infiltrating process. The conus medullaris terminates at L1, normal. Cauda equina appears unremarkable. T12-L1: No spinal canal or neural foraminal stenosis. L1-2: Disc degeneration. Minimal disc bulge with minimal spinal canal narrowing. No neural foramina. Mild facet arthropathy. Stable. L2-3: Disc degeneration. Disc bulge coupled with ligamentum flavum thickening and facet hypertrophy result in moderate spinal canal narrowing. Previously noted right subarticular disc extrusion is no longer present. [id number] right and mild left neural foraminal narrowing. Moderate facet arthropathy. L3-4: Disc degeneration. No spinal canal narrowing. Mild neural foraminal narrowing. Mild facet arthropathy. Stable. L4-5: Disc degeneration. Disc bulge coupled with facet hypertrophy results in mild spinal canal narrowing. Mild neural foraminal narrowing. Moderate facet arthropathy. Stable L5-S1: Disc degeneration. No spinal canal narrowing. Mild neural foraminal narrowing. Stable. Mild sacroiliac joint osteoarthritis. Impression: 1. At L2-3, previously noted right subarticular disc extrusion has resolved. Persistent disc degeneration with resultant moderate spinal canal narrowing. 2. Stable milder spondylosis at the remaining lumbar levels. Dictated by Jaleel Llamas MD @ 01/04/2023 2:20:48 PM (Electronically Signed)
== END 2023-01-02 15:18 | disposition home or self-care (01) ==
LOC: MRI 15:20
PROVIDERS: PCP Family Medicine; Visit Provider Physical Medicine & Rehabilitation
DX: M54.50 Low back pain, unspecified (principal); M47.896 Other spondylosis, lumbar region
CPT/HCPCS: 72148

== ENCOUNTER 2023-03-24 09:47 | Outpatient (CLI) | payer MEDICARE, SELFPAY | END 2023-03-24 09:48 | disposition home or self-care (01) | PROVIDERS: PCP Family Medicine; Visit Provider Family Medicine | DX: Z00.00 Encounter for general adult medical examination without abnormal findings (principal); I10 Essential (primary) hypertension; E78.5 Hyperlipidemia, unspecified; R63.5 Abnormal weight gain; Z12.5 Encounter for screening for malignant neoplasm of prostate; Z13.29 Encounter for screening for other suspected endocrine disorder | CPT/HCPCS: 80048; 80061; 84153; 84443 ==

== ENCOUNTER 2024-03-26 10:19 | Outpatient (CLI) | payer MEDICARE, SELFPAY | END 2024-03-26 10:20 | disposition home or self-care (01) | PROVIDERS: PCP Family Medicine; Visit Provider Family Medicine | DX: I10 Essential (primary) hypertension (principal); E78.5 Hyperlipidemia, unspecified; R97.20 Elevated prostate specific antigen [PSA]; E78.00 Pure hypercholesterolemia, unspecified | CPT/HCPCS: 80048; 80061; 84153 ==

== ENCOUNTER 2024-08-05 13:27 | Outpatient (CLI) | payer MEDICARE, SELFPAY ==
--- NOTE | 2024-08-05 13:00 | MR_ITS ---
EXAM: MR PROSTATE WITHOUT AND WITH CONTRAST CLINICAL INFORMATION: Prostate cancer. COMPARISON: None. TECHNICAL INFORMATION: Examination was performed on a 1.5T magnet. High- resolution T1 axial, T2 axial, T2 FSE sagittal and T2 FSE coronal images were obtained through the prostate gland and seminal vesicles. Diffusion images were obtained in the axial plane. 15 mL of Dotarem were injected with dynamic enhanced images of the prostate gland in the axial plane. T1 fat saturation sagittal and coronal images were obtained postinjection. Images were analyzed with 3-D postprocessing online under concurrent physician supervision using a separate [employer] workstation. INTERPRETATION: The prostate gland measures 5.4 x 4.6 x 3.6 cm (TV x AP x SI) for an estimated volume of 44 cc. Transitional and central zones: There is mild glandular and stromal hyperplasia with well encapsulated BPH nodules (PI-RADS 2). Additionally: Lesion 1: Location: Right midgland TZ (Se 8 Im 16), at 10-12 o'clock position, 20 mm anterolateral to the prostatic urethra. Description: Homogeneous T2 hypointensity with marked diffusion restriction and washout hypervascularity measures 2.0 x 1.3 x 2.4 cm (TV x AP x SI) for an estimated volume of 3.7 cc. The lesion makes broad capsular contact; transcapsular extension cannot be excluded. PI-RADS: 5 Peripheral zones: Lesion 2: Location: Left midgland PZ (Se 8 Im 16), at 3-4 o'clock position, 20 mm posterolateral to the prostatic urethra. Description: Homogeneous T2 hypointensity with marked diffusion restriction and washout hypervascularity measures 2.0 x 0.8 x 2.1 cm (TV x AP x SI) for an estimated volume of 2.3 cc. The lesion makes broad capsular contact; perineural extension cannot be excluded. PI-RADS: 5 Pelvis: The seminal vesicles appear intact. No evident bone marrow disease. A left lower obturator node (Se 11 Im 5) measures 1.0 x 0.8 cm, indeterminate. CONCLUSION: * Two very highly suspicious (PI-RADS 5) lesions are present, one in the right- anterolateral TZ and one in the left-posterolateral PZ. Transcapsular/perineural extension cannot be excluded at either site. * A left lower obturator node measures 1.0 x 0.8 cm, indeterminate for lila metastasis. * No skeletal lesions detected. PI-RADS Assessment Categories: Score 1 = very low; clinically significant disease highly unlikely Score 2 = low; clinically significant disease is unlikely Score 3 = intermediate; clinically significant disease is equivocal Score 4 = high; clinically significant disease is likely Score 5 = very high; clinically significant disease is highly likely Electronically signed on 08/07/2024 8:48:00 AM by David Michel M.D.
== END 2024-08-05 13:28 | disposition home or self-care (01) ==
LOC: MRI 13:30
PROVIDERS: PCP Family Medicine; Visit Provider Nurse Practitioner
DX: C61 Malignant neoplasm of prostate (principal); R19.00 Intra-abdominal and pelvic swelling, mass and lump, unspecified site
CPT/HCPCS: 72197; A9575

== ENCOUNTER 2024-10-04 10:39 | Emergency (ER) | payer MEDICARE, SELFPAY ==
--- OUTSIDE RECORDS SUMMARY | 2024-08-24 13:59 | XMS_ITS | Encounter Summary ---
Author Organization [facility] Address [address] [place] [address] Care Team Providers Care Standard Machine Stitcher Name Role Phone Unavailable Primary Care Provider Unavailabl e Encounter Details Date Type Department Care Team (Latest Contact Info) Description 08/24/2024 1:59 PM CDT - 08/24/2024 11:59 PM CDT Hospital Encounter Department of Laboratory Medicine in [place], [place] [address] [place] [phone] Thang Potts M.D. 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 12/03/2021 atorvastatin (Lipitor) 80 mg tablet Take 1 tablet by mouth at bedtime. cholecalciferol, vitamin D3, 10 mcg (400 unit) capsule Take 10 mcg by mouth. 12/03/2021 lisinopriL 40 mg tablet Take 1 tablet by mouth daily. omega 5-dog-raa-fish oil 1,000 mg (120 mg-180 mg) capsule Take 1 capsule by mouth. 12/03/2021 zinc acetate (Galzin) 25 mg (zinc) capsule Take 25 mg by mouth. 12/28/2021 documented as of this encounter Plan of Treatment Upcoming Encounters Date Type Department Care Team (Late st Contact Info) Description 10/07/2024 8:40 AM CDT Comprehensive Visit Department of Oncology in [place], [place] [address] [place] [phone] Stephanie Gracia M.D. [address] [place] [phone] 11/04/2024 12:30 PM CDT Infusion Department of Infusion Therapy in [place], [place] [address] [place] [phone] Amy Hinton APRN, C.N.P., D.N.P. [address] [place] [phone] documented as of this encounter Procedures Procedure Name Priority Date/Time Associated Diagnosis Comments PROTHROMBIN TIME (PT), P Routine 08/24/2024 2:18 PM CDT Primary Malignant Neoplasm Of Prostate (HCC) PLATELETS, B Routine 08/24/2024 2:18 PM CDT Mass Hepatic documented in this encounter Results * Prothrombin Time (PT) (08/24/2024 2:18 PM CDT) Prothrombin Time, P 10.6 9.4 - 12.5 sec 08/24/2024 3:43 PM CDT NPRG INR 1.0 0.9 - 1.1 08/24/2024 3:43 PM CDT NPRG Comment: ----ADDITIONAL INFORMATION---- Standard intensity warfarin therapeutic range: 2.0 to 3.0 High intensity warfarin therapeutic range: 2.5 to 3.5 Blood (Blood, Venous) 08/24/2024 2:18 PM CDT 08/24/2024 3:31 PM CDT Sol Lopez APRN, C.N.P. LAB BLOOD ADD-ON Fin al Result [facility] [address] [place] [address], [facility] NPRG [place] [address] [place] [address] * Platelet Count (08/24/2024 2:18 PM CDT) Pathologist [facility] Platelet Count [id number] - 317 x10(9)/L 08/24/2024 4:06 PM CDT NPRG Blood (Blood, Venous) 08/24/2024 2:18 PM CDT 08/24/2024 3:32 PM CDT us Thang Potts M.D. LAB BLOOD ADD-ON Final R esult [facility] [address] [place] [address], [facility] NPRG [place] [address] [place] [address] documented in this encounter Visit Diagnoses Diagnosis Mass Hepatic Primary Malignant Neoplasm Of Prostate (HCC) documented in this encounter
--- OUTSIDE RECORDS SUMMARY | 2024-08-31 07:10 | XMS_ITS | Encounter Summary ---
Author Organization [facility] Address [address] [place] [address] Care Team Providers Care Director Global Development Name Role Phone Unavailable Primary Care Provider Unavailabl e Reason for Referral * Outpatient (Routine) - Closed Specialty Diagnoses / Procedures Referred By Phillip faulkner Referred To Contact Diagnoses Primary Malignant Neoplasm Of Prostate (HCC) Mass Hepatic Procedures US Liver Biopsy Thang Potts M.D. [address] [place] [address] Phone: tel: fax: [facility] Referral ID Status Reason Start Date Expiration Date Visits Re quested Visits Authorized [id number] Closed 08/18/2024 11/18/2025 1 1 Reason for Visit * Outpatient (Routine) - Closed Specialty Diagnoses / Procedures Referred By Phillip faulkner Referred To Contact Diagnoses Primary Malignant Neoplasm Of Prostate (HCC) Mass Hepatic Procedures US Liver Biopsy Thang Potts M.D. [address] [place] [address] Phone: tel: fax: [facility] Referral ID Status Reason Start Date Expiration Date Visits Re quested Visits Authorized [id number] Closed 08/18/2024 11/18/2025 1 1 Encounter Details Date Type Department Care Team (Latest Contact Info) Description 08/31/2024 7:10 AM CDT - 08/31/2024 10:45 AM CDT Hospital Encounter Department of Radiology, [facility] in [place], [place] [address] [place] [address] Thang Potts M.D. 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 - 08/27/2024 4:59 PM CDT May restart aspirin 24 hours post biopsy Care for the site: Keep dressing in place over site for 24 hours. 24 hours after procedure, it is okay to shower. Remove the dressing, clean and rinse the puncture site gently with soap and water and dry thoroughly. Reapply a Band-Aid to the puncture site or leave open to air. Do not submerge puncture site in water such as tub bathing or swimming until completely healed. Activity: No vigorous activities for 24-48 hours. Do not lift, push, or pull anything greater than 10 lb for 1 week. Seeking emergency care: Contact your health care provider immediately or seek emergency care for the following symptoms: A temperature of 101 degrees Fahrenheit (38.3 degrees Celsius) or higher Chills Severe abdominal pain Drainage that has blood in it for more than 24 hours. For nonemergent questions or concerns: If you have questions related to the procedure, please contact the [facility] airconditioning plant operator ([phone]) and ask to be connected to the non-vascular interventional radiology fellow demolition crane operator documented in this encounter Medications at Time of Discharge [...] Take 1 tablet by mouth daily. omega 0-vsx-qol-fish oil 1,000 mg (120 mg-180 mg) capsule Take 1 capsule by mouth. 12/03/2021 zinc acetate (Galzin) 25 mg (zinc) capsule Take 25 mg by mouth. 12/28/2021 documented as of this encounter Plan of Treatment Upcoming Encounters Date Type Department Care Team (Late st Contact Info) Description 10/07/2024 8:40 AM CDT Comprehensive Visit Department of Oncology in [place], [place] [address] [place] [address] Stephanie Gracia M.D. [address] [place] [address] 11/04/2024 12:30 PM CDT Infusion Department of Infusion Therapy in [place], [place] [address] [place] [address] Amy Hinton APRN, C.N.P., D.N.P. [address] [place] [address] documented as of this encounter Procedures Procedure Name Priority Date/Time Associated Diagnosis Comments US LIVER BIOPSY RAD - Routine (most inpatients and all outpatients) 08/31/2024 8:46 AM CDT Primary Malignant Neoplasm Of Prostate (HCC) Mass Hepatic CYTOLOGY FINE NEEDLE ASPIRATION (INCLUDES CORE BIOPSIES Timed 08/31/2024 8:19 AM CDT Primary Malignant Neoplasm Of Prostate (HCC) Mass Hepatic documented in this encounter Results * US Liver Biopsy (08/31/2024 8:46 AM CDT) Anatomical Region Laterality Modality Abdomen, Ultrasound RST LOS, Ultrasound ARZ LOS, Procedure FLA LOS, Abdominal FLA LOS, Procedural, Procedural NWWI LOS N/A Ultrasound Impressions 08/31/2024 9:07 AM CDT Ultrasound-guided liver mass biopsy. NR Narrative 08/31/2024 9:07 AM CDT EXAM: US LIVER BIOPSY PRE-PROCEDURE: Patient seen, evaluated, history reviewed, and approved for sedation. Airway, heart, and lung exam satisfactory for sedation. Discussed risks, benefits, alternatives for procedure, and/or sedation. The roles and responsibilities of care team members, residents, and fellows were discussed. Patient understands information and questions answered. Informed consent obtained from the patient. Immediately prior to starting the procedure, in the presence of the assisting personnel, a procedural pause was conducted to verify correct patient identity and verification of procedure to be performed, and as applicable, correct side and site, correct patient position, availability of implants, special equipment, or special requirements, and all image and specimen identification data. INTRAPROCEDURE: Moderate sedation was administered by sedation nurse under my supervision. The patient was continuously monitored with real time oxygen saturation, heart rate, ECG rhythm strip and blood pressure throughout administration of the sedation and performance of the procedure. The total intra-procedural sedation time was: 9 minutes. TECHNIQUE: Sterile. 1% lidocaine for local anesthesia. US guidance. Location: 2.8 cm x 2.5 cm x 2.3 cm hypoechoic right hepatic lobe mass likely corresponds to the largest of the numerous hepatic masses seen on MR abdomen 08/11/2024 (series 4 image 11) Needle size: 18-gauge core needle biopsies obtained via 17-gauge introducer needle Number of passes: 4 Complication: None. Blood loss: None. PATIENT INSTRUCTIONS: Patient may be dismissed from the radiology department when dismissal criteria met. POST-PROCEDURE DIAGNOSIS: Liver masses Procedure Note Thiago Juarez M.D. - 08/31/2024 EXAM: US LIVER BIOPSY PRE-PROCEDURE: Patient seen, evaluated, history reviewed, and approved forsedation. Airway, heart, and lung exam satisfactory for sedation.Discussed risks, benefits, alternatives for procedure, and/or sedation.The roles and responsibilities of care team members, residents, and fellows were discussed. Patient understandsinformation and questions answered. Informed consent obtained from thepatient. Immediately prior to starting the procedure, in the presence ofthe assisting personnel, a procedural pause was conducted to verify correct patient identity and verificationof procedure to be performed, and as applicable, correct side and site,correct patient position, availability of implants, special equipment, orspecial requirements, and all image and specimen identification data. INTRAPROCEDURE: Moderate sedation was administered by sedation nurse undermy supervision. The patient was continuously monitored with real timeoxygen saturation, heart rate, ECG rhythm strip and blood pressurethroughout administration of the sedation and performance of the procedure. The total intra-procedural sedation timewas: 9 minutes. TECHNIQUE: Sterile. 1% lidocaine for local anesthesia. US guidance. Location: 2.8 cm x 2.5 cm x 2.3 cm hypoechoic right hepatic lobe masslikely corresponds to the largest of the numerous hepatic masses seen onMR abdomen 08/11/2024 (series 4 image 11) Needle size: 18-gauge core needle biopsies obtained via 17-gaugeintroducer needle Number of passes: 4 Complication: None. Blood loss: None. PATIENT INSTRUCTIONS: Patient may be dismissed from the radiologydepartment when dismissal criteria met. POST-PROCEDURE DIAGNOSIS: Liver masses IMPRESSION: Ultrasound-guided liver mass biopsy. NR us Thang Potts M.D. IM US PROCEDURES Final Result * (ABNORMAL) Cytology Fine Needle Aspiration (including core biopsies) (08/31/2024 8:19 AM CDT) (A) 5 11:07 AM CDT DTL Disclaimer This test was developed and its performance characteristics determined by [facility] in a manner consistent with CLIA requirements. This test has not been cleared or approved by the U.S. Food and Drug Administration. Test results for (IHC or JULIO) testing are valid for specimens fixed between 6 and 72 hours. Delay to fixation, under fixation or over fixation fall outside of guidelines and may affect these results. (A) 09/06/2024 11:07 AM CDT DTL Report electronically signed by Jon Campbell M.D. I verify that I have examined all relevant slides/materials for the specimen(s) and rendered or confirmed the diagnosis. (A) 09/06/2024 11:07 AM CDT DTL Gross Description Received 4 alcohol-fixed smears and tissue. Additionally, received in formalin labeled with the patient's name, medical record number and liver, mass are four pale mahmood-mahmood-red softtissue cores, measuring 0.1 cm in average diameter and ranging from 1.6-2.1 cm in length. Specimens are submitted en toto in cassettesA1-A2, two cores in each cassette. Grossed by ARG. (A) 09/06/2024 11:07 AM CDT DTL Source A. Liver, Mass, fine needle aspiration(A) 09/06/2024 11:07 AM CDT DTL Interpretation A. Liver, Mass, fine needle aspiration (smears/core biopsy): Positive for malignancy. Findings most consistent with Metastatic melanoma. Immunohistochemica l stains were performed at [facility] (block A1). the neoplastic cells are positive for S100, SOX10 and Melan A. The neoplastic cells are negative for AE1/AE3, NKX3.1, PSA, PACP, KRT ROSALINA, CD31, NUT, Desmin, BRAF and chromogranin. INI 1 is retained. (A) 09/06/2024 11:07 AM CDT DTL Tissue (Liver) 08/31/2024 8: 19 AM CDT us Thang Potts M.D. LAB SURG PATH ORDERABLES Final Result [facility] [address] [place] [address], [facility] DTL [address] [facility] [address] [place] [address] * Prothrombin Time (PT) (08/24/2024 2:18 PM CDT) Prothrombin Time, P 10.6 9.4 - 12.5 sec 08/24/2024 3:43 PM CDT NPRG INR 1.0 0.9 - 1.1 08/24/2024 3:43 PM CDT NPRG Comment: ----ADDITIONAL INFORMATION---- Standard intensity warfarin therapeutic range: 2.0 to 3.0 High intensity warfarin therapeutic range: 2.5 to 3.5 Blood (Blood, Venous) 08/24/2024 2:18 PM CDT 08/24/2024 3:31 PM CDT us Sol Lopez APRN, C.N.P. LAB BLOOD ADD-ON Fin al Result [facility] [address] [place] [address], [place] NPRG [facility] [address] [place] [address] documented in this encounter Visit Diagnoses Diagnosis Primary Malignant Neoplasm Of Prostate (HCC)- Primary Mass Hepatic documented in this encounter Administered Medications Inactive Administered Medications - up to 3 most recent administrations Medication Order MAR Action Action Date Dose Rate Site acetaminophen tablet 1,000 mg (TylenoL) 1,000 mg, oral, Once as needed, mild pain or score 1-3 of 10, headaches, Starting on Fri08/31/24 at 0850, For 1 dose, (not to exceed 4 grams in 24 hours) Given 08/31/2024 9:22 AM CDT 1,000 mg fentaNYL injection 25 mcg (Sublimaze) 25 mcg, intravenous, Once as needed, sedation, Starting on Fri08/31/24 at 0808, For 1 dose, Intraprocedure (RAD), IV Push fentaNYL injection 25 mcg (Sublimaze) 25 mcg, intravenous, Every 2 min PRN, sedation, Administer over 1 minute immediately prior to the procedure. May repeat every 2 minutes to a maximum of 200 mcg, until pain score of 3 or less, or until the patient meets the pain comfort goal, or RASS 0 to -2. Do not give if respiratory rate is less than 8 breaths/minute., Starting on Fri08/31/24 at 0808, Intraprocedure (RAD), Subsequent doses Given 08/31/2024 8:38 AM CDT 25 mcg Given 08/31/2024 8:36 AM CDT 25 mcg flumazeniL injection 0.2 mg (Romazicon) 0.2 mg, intravenous, Once as needed, reversal, Starting on Fri08/31/24 at 0808, For 1 dose, Intraprocedure (RAD), Administer once if patient has a RASS score of -4, -5 and has a respiratory rate less than 8 breaths/minute. Lactated Ringer's 20 mL/hr, intravenous, Once as needed, to keep vein open, Starting on Fri08/31/24 at 0808, For 1 dose, Intraprocedure (RAD) New Bag 08/31/2024 8:13 AM CDT 20 mL/hr 20 mL/hr lidocaine 10 mg/mL (1 %) injection (Xylocaine) As needed, Starting on Fri08/31/24 at 0839, Intra-Op Given 08/31/2024 8:39 AM CDT 10 mL Abdominal Tissue midazolam (PF) injection 0.25 mg (Versed) 0.25 mg, intravenous, Every 2 min PRN, sedation, RASS -2, Starting on Fri08/31/24 at 0808, Intraprocedure (RAD), May repeat every 2 minutes to a maximum of 5 mg. Do not give if respiratory rate is less than 8 breaths/minute. midazolam (PF) injection 0.5 mg (Versed) 0.5 mg, intravenous, Once as needed, sedation, Starting on e 08/31/24 at 0808, For 1 dose, Intraprocedure (RAD) midazolam (PF) injection 0.5 mg (Versed) 0.5 mg, intravenous, Every 2 min PRN, sedation, RASS -1, Starting on Fri08/31/24 at 0808, Intraprocedure (RAD), May repeat every 2 minutes for a maximum of 5 mg. Do not give if respiratory rate is less than 8 breaths/minute. Given 08/31/2024 8:38 AM CDT 0.5 mg midazolam (PF) injection 1 mg (Versed) 1 mg, intravenous, Every 2 min PRN, sedation, RASS 0, Starting on Fri08/31/24 at 0808, Intraprocedure (RAD), May repeat every 2 minutes for a maximum of 5 mg. Do not give if respiratory rate is less than 8 breaths/minute. Given 08/31/2024 8:36 AM CDT 1 mg naloxone injection 0.2 mg (Narcan) 0.2 mg, intravenous, Once as needed, respiratory depression, Starting on Fri08/31/24 at 0808, For 1 dose, Intraprocedure (RAD), Administer once if patient has a RASS score of -4, -5 and has a respiratory rate less than 8 breaths/minute. ondansetron (PF) injection 4 mg (Zofran) 4 mg, intravenous, Once as needed, nausea, vomiting, Starting on Fri08/31/24 at 0808, For 1 dose, Intraprocedure (RAD) ondansetron (PF) injection 4 mg (Zofran) 4 mg, intravenous, Every 6 hours PRN, vomiting, nausea, Starting on Fri08/31/24 at 0850, Reassess for nausea or vomiting after at least 10 minutes. If nausea or vomiting persists administer next ordered antiemetic medications (order for antiemetic medication administration ondansetron then prochlorperazine). sodium chloride 0.9 % injection 10 mL 10 mL, intravenous, As needed, line care, Starting on Fri08/31/24 at 0808, Intraprocedure (RAD), Peripheral Intravenous Catheter and Rapid Infusion Catheter, prior to blood sampling, post blood transfusion or post blood sampling sodium chloride 0.9 % injection 3 mL 3 mL, intravenous, As needed, line care, Starting on Fri08/31/24 at 0808, Intraprocedure (RAD), Prior to and following infusion and between multiple consecutive infusions: sodium chloride 0.9 % injection sodium chloride 0.9 % injection 3 mL 3 mL, intravenous, Every 12 hours scheduled, First dose on Fri08/31/24 at 0900, Intraprocedure (RAD), Peripheral Intravenous Catheter and Rapid Infusion Catheter, when no infusion to maintain patency documented in this encounter Active and Recently Administered Medications Times are shown in CDT. Scheduled Medication Order 08/29/2024 08/30/2024 08/31/2024 sodium chloride 0.9 % injection 3 mL 3 mL, intravenous, Every 12 hours scheduled, First dose on Fri08/31/24 at 0900, Intraprocedure (RAD), Peripheral Intravenous Catheter and Rapid Infusion Catheter, when no infusion to maintain patency 0900 (Due) PRN Medication Order 08/29/2024 08/30/2024 08/31/2024 acetaminophen tablet 1,000 mg (TylenoL) (COMPLETED) 1,000 mg, oral, Once as needed, mild pain or score 1-3 of 10, headaches, Starting on Fri08/31/24 at 0850, For 1 dose, (not to exceed 4 grams in 24 hours) 0922 (Given - Provid er: Gretel Phan R.N.) fentaNYL injection 25 mcg (Sublimaze) 25 mcg, intravenous, Once as needed, sedation, Starting on Fri08/31/24 at 0808, For 1 dose, Intraprocedure (RAD), IV Push fentaNYL injection 25 mcg (Sublimaze) 25 mcg, intravenous, Every 2 min PRN, sedation, Administer over 1 minute immediately prior to the procedure. May repeat every 2 minutes to a maximum of 200 mcg, until pain score of 3 or less, or until the patient meets the pain comfort goal, or RASS 0 to -2. Do not give if respiratory rate is less than 8 breaths/minute., Starting on Fri08/31/24 at 0808, Intraprocedure (RAD), Subsequent doses 0836 (Given - Provid er: Bea Nolan R.N.)0838 (Given - Provider: Bea Nolan R.N.) flumazeniL injection 0.2 mg (Romazicon) 0.2 mg, intravenous, Once as needed, reversal, Starting on Fri08/31/24 at 0808, For 1 dose, Intraprocedure (RAD), Administer once if patient has a RASS score of -4, -5 and has a respiratory rate less than 8 breaths/minute. Lactated Ringer's (COMPLETED) 20 mL/hr, intravenous, Once as needed, to keep vein open, Starting on Fri08/31/24 at 0808, For 1 dose, Intraprocedure (RAD) 0813 (New Bag - Prov ider: Bea Nolan R.N.)0844 (Stopped - Provider: Bea Nolan R.N.) lidocaine 10 mg/mL (1 %) injection (Xylocaine) (COMPLETED) As needed, Starting on Fri08/31/24 at 0839, Intra-Op 0839 (Given - Provid er: Thiago Juarez M.D.) midazolam (PF) injection 0.25 mg (Versed) 0.25 mg, intravenous, Every 2 min PRN, sedation, RASS -2, Starting on Fri08/31/24 at 0808, Intraprocedure (RAD), May repeat every 2 minutes to a maximum of 5 mg. Do not give if respiratory rate is less than 8 breaths/minute. midazolam (PF) injection 0.5 mg (Versed) 0.5 mg, intravenous, Once as needed, sedation, Starting on Fri08/31/24 at 0808, For 1 dose, Intraprocedure (RAD) midazolam (PF) injection 0.5 mg (Versed) 0.5 mg, intravenous, Every 2 min PRN, sedation, RASS -1, Starting on Fri08/31/24 at 0808, Intraprocedure (RAD), May repeat every 2 minutes for a maximum of 5 mg. Do not give if respiratory rate is less than 8 breaths/minute. 0838 (Given - Provid er: Bea Nolan R.N.) midazolam (PF) injection 1 mg (Versed) 1 mg, intravenous, Every 2 min PRN, sedation, RASS 0, Starting on Fri08/31/24 at 0808, Intraprocedure (RAD), May repeat every 2 minutes for a maximum of 5 mg. Do not give if respiratory rate is less than 8 breaths/minute. 0836 (Given - Provid er: Bea Nolan R.N.) naloxone injection 0.2 mg (Narcan) 0.2 mg, intravenous, Once as needed, respiratory depression, Starting on Fri08/31/24 at 0808, For 1 dose, Intraprocedure (RAD), Administer once if patient has a RASS score of -4, -5 and has a respiratory rate less than 8 breaths/minute. ondansetron (PF) injection 4 mg (Zofran) 4 mg, intravenous, Once as needed, nausea, vomiting, Starting on Fri08/31/24 at 0808, For 1 dose, Intraprocedure (RAD) ondansetron (PF) injection 4 mg (Zofran) 4 mg, intravenous, Every 6 hours PRN, vomiting, nausea, Starting on Fri08/31/24 at 0850, Reassess for nausea or vomiting after at least 10 minutes. If nausea or vomiting persists administer next ordered antiemetic medications (order for antiemetic medication administration ondansetron then prochlorperazine). sodium chloride 0.9 % injection 10 mL 10 mL, intravenous, As needed, line care, Starting on Fri08/31/24 at 0808, Intraprocedure (RAD), Peripheral Intravenous Catheter and Rapid Infusion Catheter, prior to blood sampling, post blood transfusion or post blood sampling sodium chloride 0.9 % injection 3 mL 3 mL, intravenous, As needed, line care, Starting on Fri08/31/24 at 0808, Intraprocedure (RAD), Prior to and following infusion and between multiple consecutive infusions: sodium chloride 0.9 % injection documented in this encounter
--- OUTSIDE RECORDS SUMMARY | 2024-09-02 14:42 | XMS_ITS | Encounter Summary ---
Author Organization [facility] Address [address] [place] [address] Care Team Providers Care Inspector Penetrant Name Role Phone Unavailable Primary Care Provider Unavailabl e Reason for Referral * MRI/CAT/PET Scan (Routine) - Closed Specialty Diagnoses / Procedures Referred By Phillip t Referred To Contact Radiology Diagnoses Secondary Malignant Neoplasm Liver (HCC) Melanoma Skin (HCC) Procedures MR Brain without and with IV Contrast Thang Potts M.D. [address] [place] [address] Phone: tel: fax: [facility] Referral ID Status Reason Start Date Expiration Date Visits Re quested Visits Authorized [id number] Closed 09/10/2024 12/11/2025 1 1 * Outpatient (Routine) - Authorized Specialty Diagnoses / Procedures Referred By Phillip t Referred To Contact Medical Oncology / Oncology Diagnoses Secondary Malignant Neoplasm Liver (HCC) Melanoma Skin (HCC) Thang Potts M.D. [address] [place] [address] Phone: tel: fax: [facility] Referral ID Status Reason Start Date Expiration Date V isits Requested Visits Authorized [id number] Authorized 09/07/2024 03/09/2026 1 1 * Outpatient (Routine) - Authorized Specialty Diagnoses / Procedures Referred By Contac t Referred To Contact Medical Oncology / Oncology Diagnoses Secondary Malignant Neoplasm Liver (HCC) Melanoma Skin (HCC) Thang Potts M.D. [address] [place] [address] Phone: tel: fax: [facility] Referral ID Status Reason Start Date Expiration Date Visits Requested Visits Authorized [id number] Authorized Specialty Services Required 09/07/2024 03/09/2026 1 1 * Outpatient (Routine) - Authorized Specialty Diagnoses / Procedures Referred By Phillip faulkner Referred To Contact Medical Oncology / Oncology Diagnoses Secondary Malignant Neoplasm Liver (HCC) Thang Potts M.D. [address] [place] [phone] Phone: tel: fax: [facility] Referral ID Status Reason Start Date Expiration Date Visits Requested Visits Authorized [id number] Authorized Specialty Services Required 09/06/2024 03/08/2026 1 1 * Outpatient (Routine) - Closed Specialty Diagnoses / Procedures Referred By Phillip faulkner Referred To Contact Radiation Oncology Thang Potts M.D. [address] [place] [phone] Phone: tel: fax: Thang Potts M.D. [address] [place] [phone] Phone: tel: fax: Referral ID Status Reason Start Date Expiration Date Visits Re quested Visits Authorized [id number] Closed 08/16/2024 02/15/2026 1 1 Scheduling Instructions As soon as liver biopsy report available. Reason for Visit * Outpatient (Routine) - Closed Specialty Diagnoses / Procedures Referred By Phillip t Referred To Contact Radiation Oncology Thang Potts M.D. [address] [place] [address] Phone: tel: fax: Thang Potts M.D. [address] [place] [address] Phone: tel: fax: Referral ID Status Reason Start Date Expiration Date Visits Re quested Visits Authorized [id number] Closed 08/16/2024 02/15/2026 1 1 Encounter Details Date Type Department Care Team (Latest Contact Info) Description 09/02/2024 2:42 PM CDT - 09/06/2024 4:45 PM CDT Hospital Encounter Department of Radiation Oncology in [place], [place] [address] [place] [phone] Thang Potts M.D. 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 omega 3-nea-gff-fish oil 1,000 mg (120 mg-180 mg) capsule Take 1 capsule by mouth. 12/03/2021 zinc acetate (Galzin) 25 mg (zinc) capsule Take 25 mg by mouth. 12/28/2021 documented as of this encounter Progress Notes * Thang Potts M.D. - 09/02/2024 3:00 PM CDT I saw the patient and follow up on 09/02/2024 to review the pathology report prior to proceeding with prostate radiation therapy. To review he initially came for treatment of his prostate but had notbeen sufficiently staged and I ordered a PSMA PET scan which showed some abnormalities in the liver, follow up liver MRI showed suspicious lesions in the liver, and therefore I ordered an ultrasound-guided biopsy. The ultrasound-guided biopsy was performed on 08/31/2024 with planned follow up a few days later todiscuss the results. Unfortunately at the time of our follow up visit the final results were not available. I reviewed with them the preliminary results and printed out a copy of the preliminary pathology results. These showed ???preliminary cytology assessment is suspicious for malignancy. I discussed with them that he would likely need Medical Oncology for evaluation of systemic therapyfor whatever malignancy was in the liver and that the treatments and prognosis were still wide ranging as we did not know the subtype of cancer. I apologized that the results were not back yet at thetime of the follow up and perhaps this could have been scheduled more optimally. I asked them if they wanted to come back to discuss the final results in person or if they wanted me to call them on Friday afternoon when I suspected that the final results would be available. They indicated that would be okay to call them and discuss this over the phone with them. The patient and his were present at the time of follow up visit discussing the results. He was understandably quite distressed by this information. Total of 20 minutes was spent in [id number] consultation with the patient discussing the pathology report and reviewing the implications and possible next steps. On 09/06/2024 I contacted the patient by phone as discussed in our follow up note and left a message on his answering machine stating that I would call him back shortly. I called back about 25 minutes later and spoke with his who had accompanied him to his recent visit and she said that I would leave a message with her. I discussed with her that his biopsy of the liver lesions showed melanoma. My recommended course of action would be to see medical oncology in [place] and defer treatmentof the prostate at the present time until the melanoma is handled and then re-evaluate the need forprostate radiation. I will place a referral to Medical Oncology at [facility]. documented in this encounter Miscellaneous Notes * Addendum Note - Thang Potts M.D. - 09/02/2024 3:00 PM CDTEncounter addended by: Thang Potts M.D. on: 09/06/2024 4:47 PM Actions taken: Order list changed, Diagnosis association updated * Addendum Note - Thang Potts M.D. - 09/02/2024 3:00 PM CDTEncounter addended by: Thang Potts M.D. on: 09/07/2024 9:05 AM Actions taken: Visit diagnoses modified, Order list changed, Diagnosis association updated * Addendum Note - Thang Potts M.D. - 09/02/2024 3:00 PM CDTEncounter addended by: Thang Potts M.D. on: 09/07/2024 6:02 PM Actions taken: Order list changed, Diagnosis association updated * Addendum Note - Thang Potts M.D. - 09/02/2024 3:00 PM CDTEncounter addended by: Thang Potts M.D. on: 09/10/2024 12:04 PM Actions taken: Order list changed, Diagnosis association updated documented in this encounter Plan of Treatment Upcoming Encounters Date Type Department Care Team (Late st Contact Info) Description 10/07/2024 8:40 AM CDT Comprehensive Visit Department of Oncology in [place], [place] [address] [place] [phone] Stephanie Gracia M.D. [address] [place] [phone] 11/04/2024 12:30 PM CDT Infusion Department of Infusion Therapy in [place], [place] [address] [place] [address] Amy Hinton APRN, C.N.P., D.N.P. [address] [place] [phone] Scheduled Referrals Name Type Priority Associated Diagnoses Order Schedule Radiation Oncology office visit (clinic) Outpatient Referral Routine Once for 1 Occurrences starting 09/02/2024 until 09/02/2024 Oncology - Medical, general consult (clinic) Outpatient Referral Routine Secondary Malignant Neoplasm Liver (HCC) Expected: 09/06/2024, Expires: 12/07/2025 Oncology - Medical, general consult (clinic) Outpatient Referral Routine Secondary Malignant Neoplasm Liver (HCC) Melanoma Skin (HCC) Expected: 09/07/2024, Expires: 12/08/2025 Oncology - Medical, skin cancer (melanoma and non-melanoma skin cancer, excluding cutaneous lymphoma) consult (clinic) Outpatient Referral Routine Secondary Malignant Neoplasm Liver (HCC) Melanoma Skin (HCC) Expected: 09/07/2024, Expires: 12/08/2025 documented as of this encounter Results * MR Brain without and with IV Contrast (09/17/2024 2:43 PM CDT) Anatomical Region Laterality Modality Head, Brain, Neuroradiology RST LOS, Neuroradiology ARZ LOS, Neuroradiology FLA LOS N/A Magnetic Resonance Impressions 09/17/2024 4:15 PM CDT No evidence for metastatic disease to the brain. Narrative 09/17/2024 4:15 PM CDT EXAM: MR BRAIN WITHOUT AND WITH IV CONTRAST COMPARISON: None. HISTORY: Metastatic melanoma with liver metastasis. FINDINGS: No focus of restricted diffusion. No large vessel territorial infarction, hydrocephalus or midline shift is present. No subdural fluid collection is seen. Mild to moderate cerebral and cerebellar atrophy. Mild microvascular ischemic disease. 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 No evidence for metastatic disease to the brain parenchyma Mild mucosal thickening within the paranasal sinuses and mastoid air cells. Procedure Note Brii Ibanez M.D. - 09/17/2024 EXAM: MR BRAIN WITHOUT AND WITH IV CONTRAST COMPARISON: None. HISTORY: Metastatic melanoma with liver metastasis. FINDINGS: No focus of restricted diffusion. No large vessel territorial infarction, hydrocephalus or midline shift ispresent. No subdural fluid collection is seen. Mild to moderate cerebraland cerebellar atrophy. 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 No evidence for metastatic disease to the brain parenchyma Mild mucosal thickening within the paranasal sinuses and mastoid aircells. IMPRESSION: No evidence for metastatic disease to the brain. Thang Potts M.D. [facility] MRI PROCEDURES Final Result * (ABNORMAL) CBC with Differential, Blood (09/17/2024 1:31 PM CDT) Hemoglobin 15.2 13.2 - 16.6 g/dL 09/17/2024 2:14 PM CDT DTL Hematocrit 46.1 38.3 - 48.6 % 09/17/2024 2:14 PM CDT DTL Erythrocytes 4.75 4.35 - 5.65 x10(12)/L 09/17/2024 2:14 PM CDT DTL MCV 97.1 78.2 - 97.9 fL 09/17/2024 2:14 PM CDT DTL RBC Distrib Width 12.7 11.8 - 14.5 % 09/17/2024 2:14 PM CDT DTL Platelet Count 217 135 - 317 x10(9)/L 09/17/2024 2:14 PM CDT DTL Leukocytes 8.4 3.4 - 9.6 x10(9)/L 09/17/2024 2:14 PM CDT DTL Neutrophils 5.48 1.56 - 6.45 x10(9)/L 09/17/2024 2:14 PM CDT DHPM Lymphocytes 1.67 0.95 - 3.07 x10(9)/L 09/17/2024 2:14 PM CDT DTL Monocytes 0.97(H) 0.26 - 0.81 x10(9)/L 09/17/2024 2:14 PM CDT DTL Eosinophils 0.15 0.03 - 0.48 x10(9)/L 09/17/2024 2:14 PM CDT DTL Basophils 0.08 0.01 - 0.08 x10(9)/L 09/17/2024 2:14 PM CDT DTL Blood (Blood, Venous) 09/17/2024 1:31 PM CDT 09/17/2024 2:04 PM CDT us Thang Potts M.D. LAB BLOOD ADD-ON Final R esult [facility] [address] [place] [address], [facility] DTL [facility] [address] [place] [address] DHPM [facility] [address] [place] [address] * (ABNORMAL) LD (Lactate Dehydrogenase) (09/17/2024 1:30 PM CDT) [facility] Bree LD 504(H) 122 - 222 U/L 09/17/2024 2:43 PM CDT DTL Blood (Blood, Venous) 09/17/2024 1:30 PM CDT 09/17/2024 2:12 PM CDT us Thang Potts M.D. LAB BLOOD NON ADD-ON Fin al Result [facility] [address] [place] [address], [place] DTL [facility] [address] [place] [address] * (ABNORMAL) Comprehensive Metabolic Panel (09/17/2024 1:30 PM CDT) [facility] Potassium, S 4.6 3.6 - 5.2 mmol/L 09/17/2024 2:43 PM CDT DTL Sodium, S 136 135 - 145 mmol/L 09/17/2024 2:43 PM CDT DTL Chloride, S 103 98 - 107 mmol/L 09/17/2024 2:43 PM CDT DTL Bicarbonate, S 22 22 - 29 mmol/L 09/17/2024 2:43 PM CDT DTL Anion Gap 11 7 - 15 09/17/2024 2:43 PM CDT DTL BUN (Blood Urea Nitrogen), S 16 8 - 24 mg/dL 09/17/2024 2:43 PM CDT DTL Creatinine 1.08 0.74 - 1.35 mg/dL 09/17/2024 2:43 PM CDT DTL Estimated GFR (eGFR) 72 >=60 mL/min/BS A 09/17/2024 2:43 PM CDT DTL Comment: Estimated GFR calculated using the 2020 CKD_EPI creatinine equation. Calcium, Total, S 9.4 8.8 - 10.2 mg/dL 09/17/2024 2:43 PM CDT DTL Glucose, S 101 70 - 140 mg/dL 09/17/2024 2:43 PM CDT DTL Protein, Total, S 7.6 6.3 - 7.9 g/dL 09/17/2024 2:43 PM CDT DTL Albumin, S 4.3 3.5 - 5.0 g/dL 09/17/2024 2:43 PM CDT DTL Aspartate Aminotransferase (AST), S 61(H) 8 - 48 U/L 09/17/2024 2:43 PM CDT DTL Alkaline Phosphatase, S 148(H) 40 - 129 U/L 09/17/2024 2:43 PM CDT DTL Alanine Aminotransferase (ALT), S 76(H) 7 - 55 U/L 09/17/2024 2:43 PM CDT DTL Bilirubin, Total, S 0.7 0.0 - 1.2 mg/dL 09/17/2024 2:43 PM CDT DTL Blood (Blood, Venous) 09/17/2024 1:30 PM CDT 09/17/2024 2:12 PM CDT us Thang Potts M.D. LAB BLOOD ADD-ON Final R esult [facility] [address] [place] [address], [facility] DTL [facility] [address] [place] [address] documented in this encounter Visit Diagnoses Diagnosis Secondary Malignant Neoplasm Liver (HCC)- Primary Melanoma Skin (HCC) Secondary Malignant Neoplasm Liver (HCC) Melanoma Skin (HCC) documented in this encounter
--- OUTSIDE RECORDS SUMMARY | 2024-09-17 13:33 | XMS_ITS | Encounter Summary ---
Author Organization [facility] Address [address] [place] [address] Care Team Providers Care Bridge Operator Slip Name Role Phone Unavailable Primary Care Provider Unavailabl e Reason for Referral * MRI/CAT/PET Scan (Routine) - Closed Specialty Diagnoses / Procedures Referred By Phillip faulkner Referred To Contact Radiology Diagnoses Secondary Malignant Neoplasm Liver (HCC) Melanoma Skin (HCC) Procedures MR Brain without and with IV Contrast Thang Potts M.D. [address] [place] [address] Phone: tel: fax: [facility] Referral ID Status Reason Start Date Expiration Date Visits Re quested Visits Authorized [id number] Closed 09/10/2024 12/11/2025 1 1 Reason for Visit * MRI/CAT/PET Scan (Routine) - Closed Specialty Diagnoses / Procedures Referred By Phillip faulkner Referred To Contact Radiology Diagnoses Secondary Malignant Neoplasm Liver (HCC) Melanoma Skin (HCC) Procedures MR Brain without and with IV Contrast Thang Potts M.D. [address] [place] [address] Phone: tel: fax: [facility] Referral ID Status Reason Start Date Expiration Date Visits Re quested Visits Authorized [id number] Closed 09/10/2024 12/11/2025 1 1 Encounter Details Date Type Department Care Team (Latest Contact Info) Description 09/17/2024 1:33 PM CDT - 09/17/2024 11:59 PM CDT Hospital Encounter Department of Radiology, [facility] in [place], [place] [address] [place] [address] Thang Potts M.D. 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 omega 2-rks-mpr-fish oil 1,000 mg (120 mg-180 mg) capsule Take 1 capsule by mouth. 12/03/2021 zinc acetate (Galzin) 25 mg (zinc) capsule Take 25 mg by mouth. 12/28/2021 documented as of this encounter Plan of Treatment Upcoming Encounters Date Type Department Care Team (Late st Contact Info) Description 10/07/2024 8:40 AM CDT Comprehensive Visit Department of Oncology in [place], [place] [address] [place] [address] Stephanie Gracia M.D. [address] [place] [phone] 11/04/2024 12:30 PM CDT Infusion Department of Infusion Therapy in [place], [place] [address] [place] [address] Amy Hinton APRN, C.N.P., D.N.P. [address] [place] [address] documented as of this encounter Procedures Procedure Name Priority Date/Time Associated Diagnosis Comments MR BRAIN WITHOUT AND WITH IV CONTRAST RAD - Routine (most inpatients and all outpatients) 09/17/2024 2:43 PM CDT Secondary Malignant Neoplasm Liver (HCC) Melanoma Skin (HCC) documented in this encounter Results * MR Brain without [...] for metastatic disease to the brain. Thang Marlborough M.D. IMG MRI PROCEDURES Final Result documented in this encounter Visit Diagnoses Diagnosis Secondary Malignant Neoplasm Liver (HCC) Melanoma Skin (HCC) documented in this encounter Administered Medications Inactive Administered Medications - up to 3 most recent administrations Medication Order MAR Action Action Date Dose Rate Site gadobutrol injection 0.01-30 mL (Gadavist) 0.01-30 mL, intravenous, Once in imaging, contrast, Starting on Fri09/17/24 at 1443, For 1 dose, Imaging Protocol Orders, Dose per Radiant Medication Guidelines Intrathecal doses greater than 0.25 mL not recommended. Given 09/17/2024 2:43 PM CDT 12 mL documented in this encounter
[2024-10-04] VITALS (30 sets, daily range): BP systolic 113–140; BP diastolic 66–87; PULSE 81–108; RESP 12–24; TEMP 35.1–36; O2SAT 96–97; BMI 31.5
--- OUTSIDE RECORDS SUMMARY | 2024-10-04 10:51 | XMS_ITS | Data Portability ---
Author Organization [facility] [place] Address [address] [place] [address] Care Team Providers Care Office Systems Technology Instructor Name Role Phone KOLTON KRAIG Primary Care Provider KRAIG HI Referring Provider [phone] Assessment No assessment recorded. Plan of Treatment Reminders Order Date Submit Date Provider Last Modified By Organization Details Last Modified Time Details Appointments None recorded. Lab None recorded. Referral urologist referral 2024 025 MARYURI Ga MD, [address], [address], [place], [address], 17:20:46 Procedures None recorded. Surgeries None recorded. Imaging None recorded. Medication Orders None recorded. Patient TargetsNo targets recorded. Patient Instructions Encounter Date Encounter Id Patient Instructions Last Modified By Organization Details Last Modified Time 04/28/2024 [id number] prostate biopsy: about this test [email or web address] Not available 04/28/2024 11:26:08 high blood pressure: care instructions [email or web address] Not available 04/28/2024 11:26:08 learning about high blood pressure [email or web address] Not available 04/28/2024 11:26:08 body mass index: care instructions [email or web address] Not available 04/28/2024 11:26:08 learning about healthy weight [email or web address] Not available 04/28/2024 11:26:08 Reason for Referral Urologist Referral for Prost ate specific antigen above reference range Referring Physician: Ron Vance, Family Medicine, Encounter Date: 04/28/2024 Medical Equipment None Reported. Medications Name Sig Start Date Stop Date Status Note LastModified by Organization Details LastModified Time atorvastatin 80 mg tablet TAKE ONE TABLET BY MOUTH DAILY AT BEDTIME active Not Available Not Available N ot Available amlodipine 10 mg tablet TAKE 1 TABLET (10 MG) BY MOUTH EVERY DAY active Not Available Not Available No t Available lisinopril 40 mg tablet TAKE ONE TABLET BY MOUTH DAILY active Not Available Not Available Not Available tadalafil 20 mg tablet 20 MG ORALLY EVERY DAY NEEDED FOR SEXUAL ACTIVITY; ADMINISTER APPROXIMATE LY 30MIN BEFORE SEXUAL ACTIVITY; DO NOT USE MORE THAN 1 DOSE PER active Not Available Not Available No t Available Vitals Date Recorded Body height Body mass index (BMI) Body weight Body temperature Respiratory rate Heart rate Systolic blood pressure Diastolic blood pressure Systolic blood pressure Diastolic blood pressure Provider Name and Address Organization Details Last Updated DateTime 182.88 cm 34.6 kg/m2 227347. 05 g 98 [degF] 18 /min 67 /min 156 mm[Hg] 86 mm[Hg] 149 mm[Hg] 80 mm[Hg] Lianna Chacon [facility] 10:53:19 Social History Question Answer Notes LastModified by Organizat ion Details LastModified Time Tobacco Smoking Status Never Smoker Lianna Chacon null, [facility] 04/28/2024 10:47:43 How Many Days Of Moderate To Strenuous Exercise, Like A Brisk Walk, Did You Do In The Last 7 Days? 7 Walking Information not available 04/28/2024 On Those Days That You Engage In Moderate To Strenuous Exercise, How Many Minutes, On Average, Do You Exercise? 60 1 Hour Information not available 04/28/2024 Date Of Last Colonoscopy 04/07/2022 Information not available 04/28/2024 What Was The Date Of Your Most Recent Tobacco Screening? 04/28/2024 Information not available 04/28/2024 What Is Your Relationship Status? Information not available 04/28/2024 Has Tobacco Cessation Counseling Been Provided? Yes Information not available 04/28/2024 How Many Days In The Past Year Have You Consumed 5 Or More Drinks? 0 Information not available 04/28/2024 Sex: Unknown Functional Status Question Answer Note LastModified by Organizat ion Details LastModified Time What is your level of alcohol consumption? Moderate 1x per day [email or web address] Information not available 04/28/2024 Are you currently employed? No Retired [email or web address] Information not available 04/28/2024 What is your exercise level? Moderate Information not available 04/28/2024 Mental Status None recorded. Family History Relationship Description Onset Age of this Age Resolved Age Notes LastModified by Organization Details LastModified Time Brother Diabetes mellitus [email or web address] [email or web address] Not available 04/28/2024 10:47:48 Brother Hypercholest erolemia [email or web address] nde Not available 04/28/2024 10:47:56 Medical History Condition Response hypercholesterolemia Y Past Encounters Encounter ID Performer Location Encounter Start Date Encounter Closed Date Diagnosis/Indication Diagnosis SNOMED-CT Code Diagnosis ICD10 Code Diagnosis Note [id number] Ron Vance DO [facility] [place] [address], [address] [place] [address] 04/28/2024 10:30:32 04/28/2024 15:16:22 Body mass index 30+ - obesity 977782784 Z68.34 Prostate s pecific antigen above reference range 312988283 R97.20 Condition status: New diagnosis Assessment : The patient is a 74-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 At this time, I do feel it would be appropriat e to seek further evaluation with urology to discuss further testing for the possibilit y of prostate cancer, particular ly given the patient's delta change from 2022 when his PSA was 5.5. We do have a lengthy discussion with the patient today and I do answer his questions to the best of my ability. We will notify him when his referral has been approved and we will plan to follow-up with him after evaluation with urology. Essential hypertension 91183809 I10 Patient was advised that blood pressure under control is essential for good health. They are advised that having elevated blood pressure can lead to worsening heart disease, strokes, and kidney disease. We explained to the patient how the chronic useage of caffeine can elevate their blood pressure and we encourage limitation in the ingestion of this substance. We advised the patient on the adverse impact of excess alcohol useage and encourage limitation . perform routine monitoring of blood pressure with home blood pressure cuff. The patient is advised of the positive impact of reducing stress in their life. The patient was informed that we are looking for a treatment goal of their blood pressure below 140/90. Avoid stimulants of any kind, to include energy drinks and pills. They are advised to continue with medication s as prescribed and to follow-up with me every 3-6 months for periodic monitoring . They are advised to avoid high sodium foods. They are advised that regular exercise and eating healthy is also a good way to help control hypertensi on. The patient's blood pressure is mildly elevated in clinic today, and therefore at this time I do advise him to monitor his blood pressure at home for the next 3 months and to log the results. We will follow-up with him at that time for blood pressure recheck and to determine if any changes to his antihypert ensive medication s need to be made. 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 His PCP in [place] obtained labs on 03/27/2024 which demonstrated an elevated PSA of 9.45. He does report the year prior his PSA was a 5.5. Was advised by his PCP to seek evaluation with a urologist for further testing. He does report waking up 1 3 times per night to urinate based on how much fluids he drinks during the day. He does endorse occasional weakening of his urinary stream and splitting of his urinary stream. He denies postvoid dribbling or incomplete voiding. He denies any known family history of prostate cancer. To get this down the patient also presents today with a history of hypertension. He is currently taking amlodipine 10 mg daily and lisinopril 40 mg daily. His blood pressure in clinic today is mildly elevated at 149/80, and he reports he does not monitor his blood pressure at home. He does report drinking a couple coffee prior to his appointment today and does feel slightly nervous regarding his PSA results. Ron Vance, [address] [facility], [place], [address], [facility] 04/28/2024 13:57:51
--- OUTSIDE RECORDS SUMMARY | 2024-10-04 10:51 | XMS_ITS | Clinical Summary ---
Author Organization [facility] Address [address] [place] [address] Care Team Providers Care Silo Erector Name Role Phone Unavailable Primary Care Provider Unavailabl e Source Comments Patient records contain information from all sites at [facility]. For routine questions regarding patient records, call [phone] during business hours, M-F 8:00 AM - 5:00 PM Central Time. Record requests for emergency care only can be directed to [phone] at any time.[facility] Allergies No known active allergies Medications amLODIPine (Norvasc) 10 mg tablet TAKE 1 TABLET (10 MG) BY MOUTH EVERY DAY Active atorvastatin (Lipitor) 80 mg tablet Take 1 tablet by mouth at bedtime. Active cholecalciferol , vitamin D3, 10 mcg (400 unit) capsule Take 10 mcg by mouth. 12/03/2021 Active lisinopriL 40 mg tablet Take 1 tablet by mouth daily. Active zinc acetate (Galzin) 25 mg (zinc) capsule Take 25 mg by mouth. 12/28/2021 Active aspirin 81 mg chewable tablet Chew 81 mg. 12/03/2021 A ctive omega 7-fkm-cny-fish oil 1,000 mg (120 mg-180 mg) capsule Take 1 capsule by mouth. 12/03/2021 Active Active Problems Problem Noted Date Diagnosed Date Dyspnea On Exertion 08/27/2024 Primary Malignant Neoplasm Of Prostate Cancer Staging:Clinical stage from 05/18/2024:Stage IIC(cT1c, cN0, cM0, PSA: 9.5, Grade Group: 4) - Unsigned Hypertension Essential Primary 03/05/2010 Encounters Date Type Department Care Team Description 09/17/2024 1:33 PM CDT - 09/17/2024 11:59 PM CDT Hospital Encounter Department of Radiology, [facility] in [place], [place] [address] [place] [address] Thang Potts M.D. Secondary Malignant Neoplasm Liver (HCC); Melanoma Skin (HCC) Discharge Disposition: Home or Self Care 09/02/2024 2:42 PM CDT - 09/06/2024 4:45 PM CDT Hospital Encounter Department of Radiation Oncology in [address] [phone] Thang Potts M.D. Secondary Malignant Neoplasm Liver (HCC) (Primary Dx); Melanoma Skin (HCC) 09/01/2024 Clinical Communication Department of Radiology, [place], [place] [address] [place] [address] Thiago Juarez M.D. Follow-up (Post procedure follow up phone call.) 08/31/2024 7:10 AM CDT - 08/31/2024 10:45 AM CDT Hospital Encounter Department of Radiology, [place], [place] [address] [place] [address] Thang Potts M.D. Primary Malignant Neoplasm Of Prostate (HCC) (Primary Dx); Mass Hepatic Discharge Disposition: Home or Self Care 08/24/2024 1:59 PM CDT - 08/24/2024 11:59 PM CDT Hospital Encounter Department of Laboratory Medicine in [place], [place] [address] [place] [phone] Thang Potts M.D. Mass Hepatic; Primary Malignant Neoplasm Of Prostate (HCC) Discharge Disposition: Home or Self Care 08/24/2024 Clinical Communication Department of Radiation Oncology in [address] [address] Thang Potts M.D. 08/16/2024 Documentation Department of Radiation Oncology in [address] [address] Thang Potts M.D. Management Visit 08/12/2024 2:30 PM CDT Infusion Department of Infusion Therapy in [address] [address] Amy Hinton APRN, C.N.PJarett, D.N.P. Primary Malignant Neoplasm Of Prostate (HCC) (Primary Dx) 08/11/2024 9:27 AM CDT - 08/11/2024 11:59 PM CDT Hospital Encounter Department of Radiology in [address] [address] Amy Hinton APRN, C.N.P., D.N.P. Lesion Liver Discharge Disposition: Home or Self Care 08/05/2024 11:47 AM CDT - 08/05/2024 5:00 PM CDT Hospital Encounter Department of Radiation Oncology in [address] [address] Thang Potts M.D. Primary Malignant Neoplasm Of Prostate (HCC) 08/05/2024 11:10 AM CDT Ancillary Procedure Department of Radiology in [address] [address] Thang Potts M.D. Primary Malignant Neoplasm Of Prostate (HCC) 08/05/2024 10:39 AM CDT - 08/05/2024 11:46 AM CDT Hospital Encounter Department of Radiation Oncology in [address] [phone] Thang Potts M.D. Primary Malignant Neoplasm Of Prostate (HCC) (Primary Dx); Lesion Liver 07/30/2024 11:07 AM CDT - 07/30/2024 11:59 PM CDT Hospital Encounter Department of Radiology in [address] [address] Amy Hinton APRN, Edvin.N.P., D.N.P. Primary Malignant Neoplasm Of Prostate (HCC) Discharge Disposition: Home or Self Care 07/30/2024 10:46 AM CDT - 07/30/2024 11:06 AM CDT Hospital Encounter Department of Laboratory Medicine in [place], [place] [address] [place] [address] Amy Hinton APRN, C.N.P., D.N.P. Primary Malignant Neoplasm Of Prostate (HCC) Discharge Disposition: Home or Self Care 07/19/2024 8:56 AM CDT - 07/19/2024 11:25 AM CDT Hospital Encounter Department of Radiation Oncology in [place], [place] [address] [place] [phone] Thang Potts M.D. Primary Malignant Neoplasm Of Prostate (HCC) (Primary Dx) 07/19/2024 Clinical Communication Department of Radiation Oncology in [place], [place] [address] [place] [phone] Osimn Velázquez R.N. from Last 3 Months Family History Medical History Relation Name Comments Lung cancer Father Smoker Relation Name Status Comments Father Social History Tobacco Use Types Packs/Day Years Used Date Smoking Tobacco: Never Smokeless Tobacco: Never Tobacco Cessation:Counseling Given: Not Answered Sex and Gender Information Value Date Recorded Sex Assigned at Not on file Legal Sex Male 9:23 AM [employer]ANTIT[employer] Gender Identity Not on file Sexual Orientation Not on file Last Filed Vital Signs Vital Sign Reading Time Taken Comments Blood Pressure 157/87 09/02/2024 2:52 PM CDT Pulse 69 09/02/2024 2:52 PM CDT Temperature 36.5 C (97.7 F) 09/02/2024 2:52 PM CDT Respiratory Rate 12 08/31/2024 9:22 AM CDT Oxygen Saturation 98% 08/31/2024 9:22 AM CDT Inhaled Oxygen Concentration - - Weight 113 kg (249 lb 9 oz) 09/02/2024 2:52 PM C DT Height - - Body Mass Index - - Plan of Treatment Upcoming Encounters Date Type Department Care Team (Late st Contact Info) Description 10/07/2024 8:40 AM CDT Comprehensive Visit Department of Oncology in [place], [place] [address] [place] [address] Stephanie Gracia M.D. [address] [place] [address] 11/04/2024 12:30 PM CDT Infusion Department of Infusion Therapy in [place], [place] [address] [place] [phone] Amy Hinton APRN, C.N.P., D.N.P. [address] [place] [address] Health Maintenance Due Date Last Done Comments CT Colonography 1950 Cologuard 1950 FIT 1950 Hepatitis C Screening 1950 RSV vaccine - (32-36 weeks) or 60+ years (1 - Risk 60-74 years 1-dose series) 2010 Colonoscopy 07/19/2015 07/18/2005 Colorectal Cancer Screening 07/19/2015 COVID-19 Vaccine ( season) 2023 03/24/2023, 10/24/2021, 01/22/2021, Additional history exists Depression Screening (Annual PHQ-2) 04/07/2024 Office Visit for Blood Pressure Check / Re-check 08/12/2025 08/12/2024 Creatinine Level (Kidney Function Test) 09/17/2025 09/17/2024 Potassium Level 09/17/2025 09/17/2024 Sodium Level 09/17/2025 09/17/2024 Fasting Glucose for Diabetes Screening 09/18/2027 09/17/2024 DTaP,Tdap,and Td Vaccines (3 - Td or Tdap) 03/23/2029 03/23/2019, 07/15/2008 Pneumococcal vaccine (50+ years) Completed 12/30/2018, 03/27/2015, 03/27/2011 Zoster Vaccines Completed 12/08/2020, 08/06, 03/27/2011 Influenza Vaccine Completed 01/22/2024, , 12/26/2021, Additional history exists Fall Risk Screen (Annual) Completed 08/31/2024 HPV Vaccines Aged Out No longer eligi ble based on patient's age to complete this topic IPV Vaccines Aged Out No longer eligi ble based on patient's age to complete this topic Procedures Procedure Name Priority Date/Time Associated Diagnosis Comments MR BRAIN WITHOUT AND WITH IV CONTRAST RAD - Routine (most inpatients and all outpatients) 09/17/2024 2:43 PM CDT Secondary Malignant Neoplasm Liver (HCC) Melanoma Skin (HCC) CBC WITH DIFFERENTIAL, B Routine 09/17/2024 1:31 PM CDT Secondary Malignant Neoplasm Liver (HCC) Melanoma Skin (HCC) LACTATE DEHYDROGENASE (LD), S Routine 09/17/2024 1:30 PM CDT Secondary Malignant Neoplasm Liver (HCC) Melanoma Skin (HCC) COMPREHENSIVE METABOLIC PANEL, S/P Routine 09/17/2024 1:30 PM CDT Secondary Malignant Neoplasm Liver (HCC) Melanoma Skin (HCC) US LIVER BIOPSY RAD - Routine (most inpatients and all outpatients) 08/31/2024 8:46 AM CDT Primary Malignant Neoplasm Of Prostate (HCC) Mass Hepatic CYTOLOGY FINE NEEDLE ASPIRATION (INCLUDES CORE BIOPSIES Timed 08/31/2024 8:19 AM CDT Primary Malignant Neoplasm Of Prostate (HCC) Mass Hepatic PROTHROMBIN TIME (PT), P Routine 08/24/2024 2:18 PM CDT Primary Malignant Neoplasm Of Prostate (HCC) PLATELETS, B Routine 08/24/2024 2:18 PM CDT Mass Hepatic MR ABDOMEN WITHOUT AND WITH IV CONTRAST RAD - Routine (most inpatients and all outpatients) 08/11/2024 11:23 AM CDT Lesion Liver OUTSIDE MR BODY Routine 08/05/2024 12:50 PM CDT INITIAL RAD ONC TREATMENT PLANNING CT SIMULATION Routine 08/05/2024 12:00 PM CDT Primary Malignant Neoplasm Of Prostate (HCC) SUBSPECIALTY REVIEW OF [facility] NUCLEAR MEDICINE IMAGING RAD - Routine (most inpatients and all outpatients) 08/05/2024 11:08 AM CDT Primary Malignant Neoplasm Of Prostate (HCC) PET CT SKULL TO THIGH PSMA RAD - Routine (most inpatients and all outpatients) 07/30/2024 12:55 PM CDT Primary Malignant Neoplasm Of Prostate (HCC) TESTOSTERONE, TOTAL BY MASS SPECROMETRY, S Routine 07/30/2024 10:58 AM CDT Primary Malignant Neoplasm Of Prostate (HCC) PROSTATE-SPECIFIC AG (PSA) DIAGNOSTIC, S Routine 07/30/2024 10:58 AM CDT Primary Malignant Neoplasm Of Prostate (HCC) from Last 3 Months Results * MR Brain without and with IV Contrast (09/17/2024 2:43 PM CDT) Anatomical Region Laterality Modality Head, Brain, Neuroradiology RST [facility], Neuroradiology ARZ [facility], Neuroradiology FLA LOS N/A Magnetic Resonance Impressions [...] for metastatic disease to the brain. Thang GRISSOM MRI PROCEDURES Final Result * (ABNORMAL) CBC [...] 1:31 PM CDT 09/17/2024 2:04 PM CDT Thang Potts M.D. LAB BLOOD ADD-ON Final R esult Performing Organization Address City/[facility]/ZIP Co de Phone Number [facility] [address] [place] [address], [facility] [address] [place], [place] [phone] [place] [address] [address] [place] [address] * (ABNORMAL) LD (Lactate Dehydrogenase) (09/17/2024 1:30 PM CDT) [facility] LD 504(H) 122 - 222 U/L 09/17/2024 2:43 PM CDT DTL Blood (Blood, Venous) 09/17/2024 1:30 PM CDT 09/17/2024 2:12 PM CDT us Thang Potts M.D. LAB BLOOD NON ADD-ON Fin al Result Performing Organization Address [facility] Co de Phone Number [facility] [address] [place] [address], [facility] [address] [place] [address] * (ABNORMAL) Comprehensive Metabolic Panel (09/17/2024 1:30 PM CDT) [facility] Potassium, S 4.6 3.6 - 5.2 mmol/L [...] M.D. LAB BLOOD ADD-ON Final R esult [place] [address] [place] [address], [place] DTL [facility] [address] [place] [address] * US Liver Biopsy (08/31/2024 8:46 AM [...] mass biopsy. NR us Thang Potts M.D. IMG US PROCEDURES Final Result * (ABNORMAL) Cytology Fine Needle Aspiration (including core biopsies) (08/31/2024 8:19 AM CDT) (A) 11:07 AM CDT DTL Disclaimer This test was developed and its performance characteristics determined by [facility] in a manner consistent with CLIA requirements. [...] melanoma. Immunohistochemica l stains were performed at [facility] (block A1). the neoplastic cells are positive for S100, SOX10 and Melan A. The neoplastic cells are negative for AE1/AE3, NKX3.1, PSA, PACP, KRT ROSALINA, CD31, NUT, Desmin, BRAF and chromogranin. INI 1 is retained. (A) 09/06/2024 11:07 AM CDT DTL Tissue (Liver) 08/31/2024 8: 19 AM CDT us Thang Potts M.D. LAB SURG PATH ORDERABLES Final Result Performing Organization Address City/State/[facility] Co de Phone Number [facility] [address] [place] [address], [facility] DT [address] [facility] [address] [place] [address] * Prothrombin Time (PT) (08/24/2024 2:18 PM [...] 08/24/2024 3:31 PM CDT us Sol Lopez APRN C.N.PJarett LAB BLOOD ADD-ON Fin al Result Performing Organization Address City/[facility]/ZIP Co de Phone Number [facility] [address] [place] [address], [facility] NPRG [place] [address] [place] [address] * Platelet Count (08/24/2024 2:18 PM CDT) Platelet Count 151 135 - 317 x10(9)/L 08/24/2024 4:06 PM CDT NPR Blood (Blood, Venous) 08/24/2024 2:18 PM CDT 08/24/2024 3:32 PM CDT us Thang Potts M.D. LAB BLOOD ADD-ON Final R esult Performing Organization Address City/[facility] Co de Phone Number [facility] [address] [place] [address], [place] [address] [place] [address] * MR Abdomen without and with IV Contrast (08/11/2024 11:23 AM CDT) Anatomical Region Laterality Modality Abdomen, Abdominal RST LOS, Abdominal ARZ LOS, Abdominal FLA LOS N/A Magnetic Resonance Impressions 08/12/2024 4:45 PM CDT Numerous indeterminate liver lesions, appearing new or significantly progressed from 06/02/2024, raising concern for a progressive neoplastic etiology, such as metastasis. Tissue sampling is suggested. Narrative 08/12/2024 4:45 PM CDT EXAM: MR ABDOMEN WITHOUT AND WITH IV CONTRAST COMPARISON:PSMA PET from 07/30/2024, CT abdomen pelvis from 06/02/2024 FINDINGS: Numerous scattered T2 hyperintense, enhancing lesions throughout the liver. These lesions enhance most avidly on arterial phase imaging. The larger lesions show central washout on more delayed imaging. The largest lesions include a 2.5 cm segment 7 lesion on series 4 image 11, and a 1.5 cm anterior segment 8 lesion on series 1201 image 33. A segment 7 lesion is possibly present on prior CT from 06/02/2024, but appears larger. Restricted diffusion is noted within these lesions. The gallbladder, pancreas, spleen, and adrenal glands are unremarkable. Small renal cysts. No hydronephrosis. Descending colon diverticula. No ascites or lymphadenopathy in the imaged upper abdomen. No suspicious focal bony lesion. Procedure Note Rock Matt M.D. - 08/12/2024 EXAM: MR ABDOMEN WITHOUT AND WITH IV CONTRAST COMPARISON:PSMA PET from 07/30/2024, CT abdomen pelvis from 06/02/2024 FINDINGS: Numerous scattered T2 hyperintense, enhancing lesions throughoutthe liver. These lesions enhance most avidly on arterial phase imaging.The larger lesions show central washout on more delayed imaging. Thelargest lesions include a 2.5 cm segment 7 lesion on series 4 image 11, and a 1.5 cm anterior segment 8lesion on series 1201 image 33. A segment 7 lesion is possibly present onprior CT from 06/02/2024, but appears larger. Restricted diffusion is notedwithin these lesions. The gallbladder, pancreas, spleen, and adrenal glands are unremarkable.Small renal cysts. No hydronephrosis. Descending colon diverticula. Noascites or lymphadenopathy in the imaged upper abdomen. No suspiciousfocal bony lesion. IMPRESSION: Numerous indeterminate liver lesions, appearing new or significantlyprogressed from 06/02/2024, raising concern for a progressive neoplasticetiology, such as metastasis. Tissue sampling is suggested. Amy Hinton APRN, C.N.P., D.N.P. IM MRI PROCEDURES Final Result * MR pelvis wo/w con-Outside MR Body (08/05/2024 12:50 PM CDT) 08/05/2024 12:4 7 PM CDT Narrative [facility] - 08/05/2024 4:22 PM CDT This order has been created and auto-finalized to support the import of outside images. If available, original interpretation can be found on the Media Tab in Chart Review, in Document Viewer, as an image in InfinityView or as an Addendum. If a re-interpretation or overread is required please follow defined workflow. us Provider Not In System IMG MRI PROCEDURES Final Result [facility] NA * Initial Rad Onc Treatment Planning CT Simulation (08/05/2024 12:00 PM CDT) Narrative [facility] - 08/05/2024 12:00 PM CDT Thang Potts M.D. 08/05/2024 5:00 PM Initial Rad Onc Treatment Planning CT Simulation Performed by: Thang Potts M.D. Authorized by: Thang Potts M.D. us Thang Potts M.D. RADIATION ONCOLOGY ORDER JONAS Final Result Performing Organization Address City/[facility] Co de Phone Number BETH COLES na * Subspecialty Review of [facility] [employer] Nuclear Medicine Imaging (08/05/2024 11:08 AM CDT) Anatomical Region Laterality Modality Nuclear Medicine RST LOS, Nu clear Medicine ARZ LOS, Nuclear Medicine FLA LOS, Nuclear Medicine, Other N/A Nucl ear Medicine Impressions 08/06/2024 4:38 PM CDT 1. Intensely PSMA avid left posterolateral PZ lesion in the midgland to apex of the prostate, consistent with the biopsy proven prostate cancer. 2. Intensely PSMA avid left pelvic sidewall lymph node, consistent with a lila metastasis. 3. Indeterminate hypodense hepatic lesions with similar PSMA uptake to the background hepatic uptake. Dedicated liver MRI is recommended for further characterization. miPSMA Expression Score: 3 * Screen captures provided. Narrative 08/06/2024 4:38 PM CDT EXAM: SUBSPECIALTY REVIEW OF [facility] [employer] NUCLEAR MEDICINE IMAGING dated 07/30/2024 TECHNIQUE: F-18 DCFPyl-PSMA PET/CT scan was performed from the vertex through the thighs with CT fusion imaging for attenuation correction and anatomic coregistration only. COMPARISON: Prostate MRI dated 08/05/2024, CT abdomen and pelvis dated 06/02/2024, and other previous studies INDICATION: Prostate cancer. [place] 4+4 prostate cancer. Initial treatment strategy. PSA = 9.5 ng/mL. FINDINGS: Prostate: Intensely PSMA avid lesion in the left posterior aspect of the prostate midgland to apex (SUV max: 23.1, image: 60, PRIMARY score 5), consistent with the biopsy-proven prostate cancer. LYMPH NODES: Intensely PSMA avid left pelvic sidewall lymph node measuring 1.4 x 1.0 cm (SUV max: 19.3, image: 74), consistent with a lila metastasis. Reactive appearing axillary and inguinal lymph nodes with low-level PSMA uptake. OSSEOUS DISEASE: No PSMA avid osseous lesion. OTHER METASTATIC DISEASE: Several indeterminate hypoattenuating lesions in the liver with similar PSMA uptake to the hepatic background. For example, the largest lesion in hepatic segment 7 measuring 2.0 cm (image 180). The second largest lesion in hepatic segment 6 measures 1.3 cm (image 142). Additional findings on the noncontrast low-dose CT: Calcified splenic granulomas. Vascular calcification including coronary artery calcification. Calcified pulmonary granuloma with calcified left hilar lymph nodes. Bibasilar atelectasis. Fatty infiltration of the pancreas. Colonic diverticulosis. Bilateral fat containing inguinal hernias. Musculoskeletal degenerative change. Procedure Note Andrae Olivera M.D., Ph.D. - 08/06/2024 EXAM: SUBSPECIALTY REVIEW OF [facility] NUCLEAR MEDICINE IMAGINGdated 07/30/2024 TECHNIQUE: F-18 DCFPyl-PSMA PET/CT scan was performed from the vertexthrough the thighs with CT fusion imaging for attenuation correction andanatomic coregistration only. COMPARISON: Prostate MRI dated 08/05/2024, CT abdomen and pelvis date06/02/2024, and other previous studies INDICATION: Prostate cancer. [place] 4+4 prostate cancer. Initialtreatment strategy. PSA = 9.5 ng/mL. FINDINGS: Prostate: Intensely PSMA avid lesion in the left posterior aspect of theprostate midgland to apex (SUV max: 23.1, image: 60, PRIMARY score 5),consistent with the biopsy-proven prostate cancer. LYMPH NODES: Intensely PSMA avid left pelvic sidewall lymph node measuring1.4 x 1.0 cm (SUV max: 19.3, image: 74), consistent with a nodalmetastasis. Reactive appearing axillary and inguinal lymph nodes with low-level PSMAuptake. OSSEOUS DISEASE: No PSMA avid osseous lesion. OTHER METASTATIC DISEASE: Several indeterminate hypoattenuating lesionsin the liver with similar PSMA uptake to the hepatic background. Forexample, the largest lesion in hepatic segment 7 measuring 2.0 cm ([id number]). The second largest lesion in hepatic segment 6 measures 1.3 cm (image 142). Additional findings on the noncontrast low-dose CT: Calcified splenicgranulomas. Vascular calcification including coronary arterycalcification. Calcified pulmonary granuloma with calcified left hilarlymph nodes. Bibasilar atelectasis. Fatty infiltration of the pancreas. Colonic diverticulosis. Bilateral fatcontaining inguinal hernias. Musculoskeletal degenerative change. IMPRESSION: 1. Intensely PSMA avid left posterolateral PZ lesion in the midgland toapex of the prostate, consistent with the biopsy proven prostate cancer. 2. Intensely PSMA avid left pelvic sidewall lymph node, consistent with anodal metastasis. 3. Indeterminate hypodense hepatic lesions with similar PSMA uptake to thebackground hepatic uptake. Dedicated liver MRI is recommended for furthercharacterization. miPSMA Expression Score: 3 * Screen captures provided. Thang Potts M.D. [facility] PROCEDURES Final Result * PET CT Skull to Thigh PSMA (07/30/2024 12:55 PM CDT) Anatomical Region Laterality Modality Body, Nuclear Medicine PET R ST LOS, PET ARZ LOS, Nuclear Medicine PET FLA LOS, Nuclear Medicine N/A Positron Emission Tomography (PET) Impressions 07/30/2024 2:31 PM CDT 1. Radiotracer avid lesion in the left lobe of the prostate gland, consistent with primary prostate malignancy. 2. Low level radiotracer uptake in pelvic and axillary lymph nodes, favored to be reactive, but metastasis cannot be entirely excluded. 3. Multiple indeterminate hepatic lesions. Recommend further characterization with liver MRI. The largest lesion is probably present on 06/02/2024 CT miPSMA score: 3 Narrative 07/30/2024 2:31 PM CDT EXAM: PET CT SKULL TO THIGH PSMA COMPARISON: Abdomen/pelvis CT 06/02/2024 INDICATION: Grade group 4 prostate cancer. Initial treatment strategy. F-[address] scan was performed from the mid thighs to skull base with CT fusion imaging for attenuation correction and anatomic coregistration only. Uptake time: 60 minutes following injection. FINDINGS: Head/Neck: No suspicious foci of increased activity. Chest: Bilateral axillary lymph nodes with low level radiotracer uptake, for example, highest SUV max of 3.4 in a left axillary lymph node, image 242. Abdomen/Pelvis: Radiotracer-avid lesion in the left lobe of the prostate gland, SUV max 23, image 58, consistent with primary prostate malignancy. Bilateral inguinal and external iliac lymph nodes with low level radiotracer activity, for example, highest SUV max of 3 in a left external iliac lymph node, image 72 Skeleton: No suspicious foci of increased activity. Other: Ill-defined hypoattenuating right hepatic lobe lesion measuring 18 mm, series 4 image 181, and multiple smaller hypoattenuating hepatic lesions, seen on CT images and indistinguishable from background uptake on PET images. The largest lesion is faintly visible on 06/02/2024 CT. Left-sided coronary artery atherosclerotic calcifications. Calcified left hilar lymph node and lung nodules likely reflect old granulomatous disease. Colonic diverticulosis. RADIOPHARMACEUTICAL/MEDS: Route: intravenous piflufolastat F 18 injection (F-18 Pylarify),9.7 millicurie Procedure Note Polo Pollock M.D., M.S. - 07/30/2024 EXAM: PET CT SKULL TO THIGH PSMA COMPARISON: Abdomen/pelvis CT 06/02/2024 INDICATION: Grade group 4 prostate cancer. Initial treatment strategy. F-[address] scan was performed from the mid thighs to skullbase with CT fusion imaging for attenuation correction and anatomiccoregistration only. Uptake time: 60 minutes following injection. FINDINGS: Head/Neck: No suspicious foci of increased activity. Chest: Bilateral axillary lymph nodes with low level radiotracer uptake,for example, highest SUV max of 3.4 in a left axillary lymph node, . Abdomen/Pelvis: Radiotracer-avid lesion in the left lobe of the prostategland, SUV max 23, image 58, consistent with primary prostate malignancy.Bilateral inguinal and external iliac lymph nodes with low levelradiotracer activity, for example, highest SUV max of 3 in a left external iliac lymph node, image 72 Skeleton: No suspicious foci of increased activity. Other: Ill-defined hypoattenuating right hepatic lobe lesion measuring 18mm, series 4 image 181, and multiple smaller hypoattenuating hepaticlesions, seen on CT images and indistinguishable from background uptake onPET images. The largest lesion is faintly visible on 06/02/2024 CT. Left-sided coronary artery atherosclerotic calcifications. Calcified lefthilar lymph node and lung nodules likely reflect old granulomatousdisease. Colonic diverticulosis. RADIOPHARMACEUTICAL/MEDS: Route: intravenous piflufolastat F 18 injection (F-18 Pylarify),9.7 millicurie IMPRESSION: 1. Radiotracer avid lesion in the left lobe of the prostate gland,consistent with primary prostate malignancy. 2. Low level radiotracer uptake in pelvic and axillary lymph nodes,favored to be reactive, but metastasis cannot be entirely excluded. 3. Multiple indeterminate hepatic lesions. Recommend furthercharacterization with liver MRI. The largest lesion is probably present on06/02/2024 CT miPSMA score: 3 Amy Hinton APRN, C.N.P., D.N.P. [facility] ROCEDURES Final Result * Testosterone, Total by Mass Spectrometry, Serum (07/30/2024 10:58 AM CDT) Pathologist [facility] Testosterone, Total by Mass Spectrometry, Serum 731 240 - 950 ng/dL 08/04/2024 2:30 PM CDT [facility] Comment: ----ADDITIONAL INFORMATION---- Testing performed by Liquid Chromatography-Tandem Mass Spectrometry (LC-MS/MS). This test was developed and its performance characteristics determined by [facility] in a manner consistent with CLIA requirements. This test has not been cleared or approved by the U.S. Food and Drug Administration. Blood (Blood, Venous) 07/30/2024 10:58 AM CDT 07/31/2024 7:24 AM CDT Cele Valles APRNNEs., Annalisa.N.P. LAB BLOO D NON ADD-ON Final Result [facility] [address] [place] [address] [facility] [address] N[place]AY[place] [address] [place] [address] * (ABNORMAL) PSA (Prostate-Specific Antigen), Diagnostic (07/30/2024 10:58 AM CDT) Prostate-Specific Ag 13.0(H) <=6.5 ng/mL 07/30/2024 11:32 AM CDT [facility] Comment: ----ADDITIONAL INFORMATION---- The testing method is an electrochemiluminescence assay manufactured by [employer] and performed on the Modular or Paxton system. Values obtained with different assay methods or kits may be different and cannot be used interchangeably. Test results cannot be interpreted as absolute evidence for the presence or absence of malignant disease. Blood (Blood, Venous) 07/30/2024 10:58 AM CDT 07/30/2024 11:04 AM CDT Cele Valles APRNN.Hebert., D.N.P. LAB BLOO D ADD-ON Final Result [facility] [address] [place] [address], [facility] NPRG [facility] [address] [place] [address] from Last 3 Months Insurance [facility]
--- OUTSIDE RECORDS SUMMARY | 2024-10-04 10:51 | XMS_ITS ---
Author Organization [facility] Address [address] [place] [address] Care Team Providers Care Security Auditor Name Role Phone Unavailable Primary Care Provider Unavailabl e Active Problems Problem Noted Date Diagnosed Date Dyspnea On Exertion 08/27/2024 Primary Malignant Neoplasm Of Prostate Cancer Staging:Clinical stage from 05/18/2024:Stage IIC(cT1c, cN0, cM0, PSA: 9.5, Grade Group: 4) - Unsigned Hypertension Essential Primary 03/05/2010 Current Treatment and Therapy Plans Leuprolide Acetate Every 12 Weeks* Plan Start Date:08/12/2024 Plan Provider:Amy Hinton APRN, C.N.P., D.N.P. Linked Problems Primary Malignant Neoplasm O f Prostate (HCC) Treatment Medications No medications scheduled. Past Treatment and Therapy Plans No past plan information found.
--- OUTSIDE RECORDS SUMMARY | 2024-10-04 10:51 | XMS_ITS | Encounter Summary ---
Author Organization [facility] Address [address] [place] [address] Care Team Providers Care Senior Maintenance Technician Name Role Phone Unavailable Primary Care Provider Unavailabl e Encounter Details Date Type Department Care Team (Late st Contact Info) Description 08/24/2024 Clinical Communication Department of Radiation Oncology in [place], [place] [address] [place] [phone] Thang Potts M.D. 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 [address] [place] [phone] 11/04/2024 12:30 PM CDT Infusion Department of Infusion Therapy in [place], [place] [address] [place] [phone] Amy Hinton APRN, C.N.P., D.N.P. [address] [place] [phone] documented as of this encounter Visit Diagnoses Not on filedocumented in this encounter
--- OUTSIDE RECORDS SUMMARY | 2024-10-04 10:51 | XMS_ITS | Clinical Summary ---
Author [facility] Address [address] [place] [address] Care Team Providers Care Branch Assistant Name Role Phone Clinic, No Pcp Or Primary Care Provider Unavaila ble Encounters Date Type Department Care Team Description 07/30/2024 3:00 PM CDT Ancillary Procedure [facility] [address] [facility] [address] [place] [address] 07/30/2024 Travel 07/22/2024 Transcribe Orders [facility] [address] [facility] [address] [place] [address] Self, Referral from Last 3 Months Social History Tobacco Use Types Packs/Day Years Used Date Smoking Tobacco: Never Assessed Sex and Gender Information Value Date Recorded Sex Assigned at Not on file 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 Gender Identity Not on file Sexual Orientation Not on file Plan of Treatment Health Maintenance Due Date Last Done Comments Tdap 1961 Depression screening for age 12+ 1962 BMI (ht and wt on same day) for age 18+ 02/12/1968 Hepatitis C screening for ag e 18-79 02/12/1968 Tetanus booster 1970 Colonoscopy through age 75 1995 Lipids for age 45-75 1995 Pneumococcal series for age 50+ (1 of 1 - PCV) 02/12/2000 Zoster (shingles) series for age 50+ (1 of 2) 02/12/2000 COVID-19 vaccine series ( - 2023- season) 2023 03/24/2023, 10/24/2021, 01/22/2021 Influenza Vaccine (Season Ended) 2024 RSV vaccine for adults or (1 - 1-dose 75+ series) 2025 Hepatitis B series for 19+ Aged Out N o longer eligible based on patient's age to complete this topic Procedures Procedure Name Priority Date/Time Associated Diagnosis Comments CT CARDIAC CALCIUM SCORE ONLY WO SINGLE READ Routine 07/30/2024 3:02 PM CDT Screening for cardiovascular condition from Last 3 Months Results * CT CARDIAC CALCIUM SCORE ONLY WO SINGLE READ (07/30/2024 3:02 PM CDT) Anatomical Region Laterality Modality Computed Tomogra phy 07/31/2024 3:48 AM CDT Narrative 07/31/2024 3:48 AM CDT For Patients: As a result of the Cures Act, medical imaging exams and procedure reports are released immediately into your electronic medical record. You may view this report before your referring provider. If you have questions, please contact your health care provider. CT CARDIAC CALCIUM SCORING PATIENT HISTORY: Screening for cardiovascular condition. REPORT: High-resolution, ECG-synchronized noncontrast computed tomography of the heart with attention to the coronary arteries was performed. Coronary calcification analyzed using Siemens calcium scoring software. These are the results of the evaluation: CT Calcium Scoring: This cardiac CT examination will provide you with a coronary artery calcium score. A coronary artery calcium score is a measurement of the amount of calcified plaque in the coronary arteries, the arteries that supply blood to the heart muscle. The coronary artery calcium score is calculated based on the number, size, and density of the calcified plaques in the coronary arteries. The amount of calcified coronary plaque has been shown to directly correlate with future risk for heart disease. The coronary artery calcium is a marker of how much plaque has accumulated in the diaz of the coronary arteries. It is not a test for blockages. This test is intended to assess cardiovascular risk in patients without symptoms. It is not intended to be a test for individuals with chest pain or other possible symptoms suggestive of heart disease. If you are having chest pain or other potential cardiovascular symptoms, see your physician. Calcium Score: Left main = 0 Left anterior descending = 30 Left circumflex = 0 Right coronary artery = 0 Total calcium score = 30 This places the patient at the 20th percentile for matched age and gender. Calcified Plaque Seen Assessment: - Your cardiac CT examination demonstrates plaque in the coronary arteries. - The amount of plaque in the coronary arteries directly correlates with the risk for heart attack and other coronary events (such as bypass or stenting). - As discussed above, the coronary artery calcium score is intended for risk assessment in patients without cardiovascular symptoms. If you are having chest pain or other potential cardiovascular symptoms, see your physician. Recommendations: - To lower your cardiovascular risk, we strongly recommend adherence to healthy lifestyle behaviors including: - Following a heart healthy diet focused on modest portion sizes, a high intake of fresh fruits and vegetables, whole grains, healthy fats (olive oil, nuts and seeds, avocados), and healthy proteins (unprocessed meats, fish, legumes). - Following an active lifestyle including 30-45 minutes of moderate intensity exercise 5-6 times per week. - Avoidance of tobacco products. - Cardiovascular preventive medication, including a daily aspirin and cholesterol-lowering statin medications have been shown to reduce the risk of a future heart attack and stroke, especially in individuals at higher risk for heart disease. - We recommend that individuals with calcified plaque discuss the risks and benefits of cholesterol-lowering medications, blood pressure medications, and aspirin with their primary care physician. Cholesterol-lowering medications have been shown to reduce the risk of heart attack in individuals at elevated risk, including in patients with normal cholesterol levels at baseline. - A coronary artery calcium score is not a test for blockages, it is a test for underlying plaque. An elevated calcium score is not an indication for additional testing for coronary heart disease though one may be considered based on your clinical history. The results of your coronary artery calcium score should be reviewed by your primary care provider or data transcriber. - These recommendations are generalized and may not specifically apply to you as an individual. Your primary care physician is in the best position to provide advice on your care and clinical decisions should ultimately be made by you and your physician. EXTRA-CARDIAC FINDINGS: Normal heart size. No pericardial effusion. Small calcified bilateral hilar lymph nodes compatible with prior granulomatous disease. The visualized lungs are clear except for mild bibasilar atelectasis. Please note that all CT scans at this facility use dose modulation, iterative reconstruction, and/or weight-based dosing when appropriate to reduce radiation dose to as low as reasonably achievable. Dictated by Thalia Gomez MD @ 07/30/2024 6:01:42 PM (Electronically Signed) Procedure Note Thalia Gomez MD - 07/31/2024 For Patients: As a result of the Cures Act, medical imagingexams and procedure reports are released immediately into your electronicmedical record. You may view this report before your referring provider.If you have questions, please contact your health care provider. CT CARDIAC CALCIUM SCORING PATIENT HISTORY: Screening for cardiovascular condition. REPORT: High-resolution, ECG-synchronized noncontrast computed tomographyof the heart with attention to the coronary arteries was performed. Coronary calcification analyzed using Siemens calcium scoring software.These are the results of the evaluation: CT Calcium Scoring: This cardiac CT examination will provide you with acoronary artery calcium score. A coronary artery calcium score is ameasurement of the amount of calcified plaque in the coronary arteries,the arteries that supply blood to the heart muscle. The coronary arterycalcium score is calculated based on the number, size, and density of thecalcified plaques in the coronary arteries. The amount of calcifiedcoronary plaque has been shown to directly correlate with future risk forheart disease. The coronary artery calcium is a marker of how much plaque has accumulatedin the diaz of the coronary arteries. It is not a test for blockages.This test is intended to assess cardiovascular risk in patients withoutsymptoms. It is not intended to be a test for individuals with chest painor other possible symptoms suggestive of heart disease. If you are havingchest pain or other potential cardiovascular symptoms, see yourphysician. Calcium Score: Left main = 0 Left anterior descending = 30 Left circumflex = 0 Right coronary artery = 0 Total calcium score = 30 This places the patient at the 20th percentile for matched age andgender. Calcified Plaque Seen Assessment: - Your cardiac CT examination demonstrates plaque in the coronaryarteries. - The amount of plaque in the coronary arteries directly correlates withthe risk for heart attack and other coronary events (such as bypass orstenting). - As discussed above, the coronary artery calcium score is intended forrisk assessment in patients without cardiovascular symptoms. If you arehaving chest pain or other potential cardiovascular symptoms, see yourphysician. Recommendations: - To lower your cardiovascular risk, we strongly recommend adherence tohealthy lifestyle behaviors including: - Following a heart healthy diet focused on modest portion sizes, a highintake of fresh fruits and vegetables, whole grains, healthy fats (oliveoil, nuts and seeds, avocados), and healthy proteins (unprocessed meats,fish, legumes). - Following an active lifestyle including 30-45 minutes of moderateintensity exercise 5-6 times per week. - Avoidance of tobacco products. - Cardiovascular preventive medication, including a daily aspirin andcholesterol-lowering statin medications have been shown to reduce the riskof a future heart attack and stroke, especially in individuals at higherrisk for heart disease. - We recommend that individuals with calcified plaque discuss the risksand benefits of cholesterol-lowering medications, blood pressuremedications, and aspirin with their primary care physician.Cholesterol-lowering medications have been shown to reduce the risk ofheart attack in individuals at elevated risk, including in patients withnormal cholesterol levels at baseline. - A coronary artery calcium score is not a test for blockages, it is atest for underlying plaque. An elevated calcium score is not an indicationfor additional testing for coronary heart disease though one may beconsidered based on your clinical history. The results of your coronaryartery calcium score should be reviewed by your primary care provider orcardiologist. - These recommendations are generalized and may not specifically apply toyou as an individual. Your primary care physician is in the best positionto provide advice on your care and clinical decisions should ultimately bemade by you and your physician. EXTRA-CARDIAC FINDINGS: Normal heart size. No pericardial effusion. Smallcalcified bilateral hilar lymph nodes compatible with prior granulomatousdisease. The visualized lungs are clear except for mild bibasilaratelectasis. Please note that all CT scans at this facility use dose modulation,iterative reconstruction, and/or weight-based dosing when appropriate toreduce radiation dose to as low as reasonably achievable. Dictated by Thalia Gomez MD @ 07/30/2024 6:01:42 PM (Electronically Signed) us Referral Self CT Final Result from Last 3 Months Care Teams Branch Assistant Relationship Specialty Start Date End Date Clinic, No Pcp Or . PCP - General 07/22/24
--- OUTSIDE RECORDS SUMMARY | 2024-10-04 10:51 | XMS_ITS | Encounter Summary ---
Author Organization [facility] Address [address] [place] [address] Care Team Providers Care Slaughterer Religious Ritual Name Role Phone Unavailable Primary Care Provider Unavailabl e Reason for Visit * Reason Onset Date Comments Follow-up 09/01/2024 Post procedure f ollow up phone call. Encounter Details Date Type Department Care Team (Latest Contact Info) Description 09/01/2024 Clinical Communication Department of Radiology, [facility], in [place], [place] [address] [place] [phone] Thiago Juarez M.D. 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 Biopsy or procedure performed Liver Date of procedure: 08/31/2024 Performing practitioner: Dr. Juarez Emergent signs and symptoms: Denies emergent signs or symptoms including continuous bleeding from the biopsy/procedure site, new or worsening problems with shortness of breath, or pain at the biopsy/procedure site greater or equal to 6. Non emergent signs/symptoms: Denies non-emergent signs/symptoms including new or increasing rednessor tenderness surrounding the biopsy/procedure site, pain at biopsy/procedure site is unacceptable compared with pre-procedure pain, abnormal warmth/heating from site, new or increasing swelling, andoral temp greater than 100.4 F Other Medical Problems unrelated to biopsy: Pt denies other problems unrelated to biopsy Pt Disposition: Pt denies any biopsy complications. Pt instructed to call primary care for additional concerns PLAN Disposition/Recommendation: self-care is appropriate at this time, patient encouraged to call back with questions Information/Education: patient/caller able to teach back Caller agreeable to plan of care: yes The following references were used: nursing clinical judgement documented in this encounter Plan of Treatment Upcoming Encounters Date Type Department Care Team (Late st Contact Info) Description 10/07/2024 8:40 AM CDT Comprehensive Visit Department of Oncology in [place], [place] [address] [place] [phone] Stephanie Gracia M.D. [address] [place] [phone] 11/04/2024 12:30 PM CDT Infusion Department of Infusion Therapy in [place], [place] [address] [place] [phone] Amy Hinton APRN, C.N.P., D.N.P. [address] [place] [phone] documented as of this encounter Visit Diagnoses Not on filedocumented in this encounter
--- NOTE | 2024-10-04 10:59 | ED.ABDPAIN ---
HPI - Abdominal Pain General Time Seen by Provider: 10:59 <Samantha Morrissey MD - Last Filed: 10/10/24 08:41> Date Seen: 10/04/24 <Samantha Morrissey MD - Last Filed: 10/10/24 08:41> Chief Complaint: Abdominal Pain <Samantha Morrissey MD - Last Filed: 10/10/24 08:41> Stated Complaint: abdominal pain <Samantha Morrissey MD - Last Filed: 10/10/24 08:41> Time Seen by Provider: 10/04/24 10:59 <Samantha Morrissey MD - Last Filed: 10/10/24 08:41> Source: patient, RN notes reviewed and old records reviewed <Samantha Morrissey MD - Last Filed: 10/10/24 08:41> Mode of arrival: ambulatory <Samantha Morrissey MD - Last Filed: 10/10/24 08:41> Limitations: no limitations <Samantha Morrissey MD - Last Filed: 10/10/24 08:41> History of Present Illness HPI narrative: Solo is a very pleasant 74-year-old gentleman with history of prostate cancer, hyperlipidemia who comes to the emergency room for evaluation regarding abdominal pain. Patient notes that for 1 week he has had intermittent abdominal pain usually right sided abdomen or right lower abdomen that is worsened by eating. He notes that last night his entire abdomen hurt and was radiating into his chest. His feels like he is more distended. 3 days ago he had very good bowel movement that ?cleaned him out?. Since then he has not really had a bowel movement. He notes he is able to urinate but that his urine is very yellow. He has not had fever or chills but endorses diaphoresis especially when he is having discomfort. He has also been a little short of breath. Notes that he has a diagnosis of prostate cancer and a ?spot on his liver and ?. Up until today has not had nausea but nausea is present this morning. No vomiting. Patient notes that he has had prostate cancer currently contained. 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 and biopsy did show that the spot on his liver is melanoma. He is currently awaiting specialty consult with [facility]. <Samantha Morrissey MD - Last Filed: 10/10/24 08:41> Related Data Home Medications: Home Medications ?Medication ?Instructions ?Recorded ?Confirmed aspirin 81 mg chewable tablet 81 mg PO DAILY 12/03/21 10/04/24 cholecalciferol (vitamin D3) 10 10 mcg PO QDAY 12/03/21 10/04/24 mcg (400 unit) capsule glucosamine sulfate 500 mg tablet 500 mg PO QDAY 12/03/21 03/26/24 (Glucosamine) omega 2-ovm-ujl-fish oil 1,000 mg 1 cap PO QDAY 12/03/21 03/26/24 (120 mg-180 mg) capsule (Fish Oil) garlic 200 mg tablet 200 mg PO QDAY 12/28/21 10/04/24 zinc acetate 25 mg (zinc) capsule 25 mg PO QDAY 12/28/21 03/26/24 (Galzin) Previous Rx's ?Medication ?Instructions ?Recorded tadalafil 5 mg tablet 5 mg PO DAILY #30 tabs 03/24/23 amlodipine 10 mg tablet 10 mg PO QDAY #90 tabs 03/26/24 atorvastatin 80 mg tablet See Rx Instructions .Route 03/26/24 .COMPLEX #90 ea lisinopril 40 mg tablet See Rx Instructions .Route 03/26/24 .COMPLEX #90 ea <Samantha Morrissey MD - Last Filed: 10/10/24 08:41> Allergies/Adverse Reactions: Allergies Allergy/AdvReac Type Severity Reaction Status Date / Time No Known Drug Allergies Allergy Verified 03/26/24 09:25 <Samantha Morrissey MD - Last Filed: 10/10/24 08:41> Review of Systems Status of ROS Reports: 10 or more systems reviewed and unremarkable except as noted in History and below <Samantha Morrissey MD - Last Filed: 10/10/24 08:41> [facility] Surgical History: Surgical History History of bilateral inguinal hernia repair (03/05/10) ?Z98.890 - Other specified postprocedural states (ICD-10) ?Z87.19 - Personal history of other diseases of the digestive system (ICD-10) <Samantha Morrissey MD - Last Filed: 10/10/24 08:41> Family History: Family History Other Colonic polyp <Samantha Morrissey MD - Last Filed: 10/10/24 08:41> Social History: Social History Smoking Status: Never smoker Do you use any of these nicotine containing products: None Second hand tobacco smoke exposure: No How often do you have a drink containing alcohol: never AUDIT-C Alcohol total score: 0 Non-prescribed substance use: denies use service: No <Samantha Morrissey MD - Last Filed: 10/10/24 08:41> Exam Narrative: Exam Narrative: Alert and oriented. No acute distress. Face symmetrical mentation and speech normal. Neck is supple. Heart with regular rate and rhythm. Lungs are clear bilaterally. Bowel sounds appear to be increased. Abdomen is somewhat protruded Epi but no significant tenderness is palpated. Questionable hepatomegaly again without any tenderness. Lower extremities without edema. <Samantha Morrissey MD - Last Filed: 10/10/24 08:41> Const: Vital Signs, click to edit/add: Vital Signs - 24 hr 10/04/24 10:50 10/04/24 11:11 10/04/24 11:15 Temperature 95.2 F L Pulse Rate [Pulse Oximeter] 103 H Respiratory Rate 20 24 16 Blood Pressure Blood Pressure [Ri ght Upper Arm] 113/66 Pulse Oximetry 96 Oxygen Delivery Me thod Room Air 10/04/24 11:30 10/04/24 11:45 10/04/24 12:00 Temperature Pulse Rate [Pulse Oximeter] Respiratory Rate 14 15 15 Blood Pressure Blood Pressure [Ri ght Upper Arm] Pulse Oximetry Oxygen Delivery Me thod 10/04/24 12:15 10/04/24 13:03 10/04/24 13:15 Temperature Pulse Rate [Pulse Oximeter] Respiratory Rate 14 12 17 Blood Pressure Blood Pressure [Ri ght Upper Arm] Pulse Oximetry Oxygen Delivery Me thod 10/04/24 13:30 10/04/24 13:45 10/04/24 13:50 Temperature Pulse Rate [Pulse Oximeter] Respiratory Rate 12 16 16 Blood Pressure 130/87 Blood Pressure [Ri ght Upper Arm] Pulse Oximetry Oxygen Delivery Me thod 10/04/24 13:52 10/04/24 14:00 10/04/24 14:30 Temperature Pulse Rate [Pulse Oximeter] 81 Respiratory Rate 20 15 19 Blood Pressure Blood Pressure [Ri ght Upper Arm] 130/87 Pulse Oximetry 97 Oxygen Delivery Me thod Room Air 10/04/24 14:45 10/04/24 15:00 10/04/24 15:15 Temperature Pulse Rate [Pulse Oximeter] Respiratory Rate 17 15 12 Blood Pressure Blood Pressure [Ri ght Upper Arm] Pulse Oximetry Oxygen Delivery Me thod 10/04/24 15:30 10/04/24 15:45 10/04/24 16:00 Temperature Pulse Rate [Pulse Oximeter] Respiratory Rate 15 18 19 Blood Pressure Blood Pressure [Ri ght Upper Arm] Pulse Oximetry Oxygen Delivery Me thod 10/04/24 17:17 10/04/24 17:19 10/04/24 17:23 Temperature 96.5 F L Pulse Rate [Pulse Oximeter] 108 H Respiratory Rate 20 20 Blood Pressure 118/77 Blood Pressure [Ri ght Upper Arm] 118/77 Pulse Oximetry 97 Oxygen Delivery Me thod Room Air 10/04/24 17:30 10/04/24 18:00 10/04/24 18:30 Temperature Pulse Rate [Pulse Oximeter] Respiratory Rate 13 13 14 Blood Pressure Blood Pressure [Ri ght Upper Arm] Pulse Oximetry Oxygen Delivery Or thod 10/04/24 18:45 10/04/24 19:00 10/04/24 19:38 Temperature 96.8 F L Pulse Rate [Pulse Oximeter] 82 Respiratory Rate 14 12 14 Blood Pressure Blood Pressure [Ri ght Upper Arm] 140/86 H Pulse Oximetry 96 Oxygen Delivery Me od Room Air <Samantha Morrissey MD - Last Filed: 10/10/24 08:41> Vital Signs, click to edit/add: Vital Signs - 24 hr 10/04/24 10:50 10/04/24 11:11 10/04/24 11:15 Temperature 95.2 F L Pulse Rate [Pulse Oximeter] 103 H Respiratory Rate 20 24 16 Blood Pressure Blood Pressure [Ri ght Upper Arm] 113/66 Pulse Oximetry 96 Oxygen Delivery Or thod Room Air 10/04/24 11:30 10/04/24 11:45 10/04/24 12:00 Temperature Pulse Rate [Pulse Oximeter] Respiratory Rate 14 15 15 Blood Pressure Blood Pressure [Ri ght Upper Arm] Pulse Oximetry Oxygen Delivery Me thod 10/04/24 12:15 10/04/24 13:03 10/04/24 13:15 Temperature Pulse Rate [Pulse Oximeter] Respiratory Rate 14 12 17 Blood Pressure Blood Pressure [Ri ght Upper Arm] Pulse Oximetry Oxygen Delivery Or thod 10/04/24 13:30 10/04/24 13:45 10/04/24 13:50 Temperature Pulse Rate [Pulse Oximeter] Respiratory Rate 12 16 16 Blood Pressure 130/87 Blood Pressure [Ri ght Upper Arm] Pulse Oximetry Oxygen Delivery Or thod 10/04/24 13:52 10/04/24 14:00 10/04/24 14:30 Temperature Pulse Rate [Pulse Oximeter] 81 Respiratory Rate 20 15 19 Blood Pressure Blood Pressure [Ri ght Upper Arm] 130/87 Pulse Oximetry 97 Oxygen Delivery Or thod Room Air 10/04/24 14:45 10/04/24 15:00 10/04/24 15:15 Temperature Pulse Rate [Pulse Oximeter] Respiratory Rate 17 15 12 Blood Pressure Blood Pressure [Ri ght Upper Arm] Pulse Oximetry Oxygen Delivery Or thod 10/04/24 15:30 10/04/24 15:45 10/04/24 16:00 Temperature Pulse Rate [Pulse Oximeter] Respiratory Rate 15 18 19 Blood Pressure Blood Pressure [Ri ght Upper Arm] Pulse Oximetry Oxygen Delivery Or thod 10/04/24 17:17 10/04/24 17:19 10/04/24 17:23 Temperature 96.5 F L Pulse Rate [Pulse Oximeter] 108 H Respiratory Rate 20 20 Blood Pressure 118/77 Blood Pressure [Ri ght Upper Arm] 118/77 Pulse Oximetry 97 Oxygen Delivery Me thod Room Air 10/04/24 17:30 10/04/24 18:00 10/04/24 18:30 Temperature Pulse Rate [Pulse Oximeter] Respiratory Rate 13 13 14 Blood Pressure Blood Pressure [Ri ght Upper Arm] Pulse Oximetry Oxygen Delivery Me thod 10/04/24 18:45 10/04/24 19:00 10/04/24 19:38 Temperature 96.8 F L Pulse Rate [Pulse Oximeter] 82 Respiratory Rate 14 12 14 Blood Pressure Blood Pressure [Ri ght Upper Arm] 140/86 H Pulse Oximetry 96 Oxygen Delivery Me thod Room Air <Ngozi Cabezas MD - Last Filed: 10/04/24 20:36> Documenting provider has reviewed patient's vital signs: yes <Samantha Morrissey MD - Last Filed: 10/10/24 08:41> Course Course ED Course: Differential diagnosis includes but is not limited to gastroenteritis, colitis, diverticulitis, small-bowel obstruction, appendicitis. Given the diaphoresis and radiation of pain into the chest will also need to consider acute coronary syndrome or angina. Will place IV, obtained EKG, chest x-ray, PE, comprehensive panel, lactate, CRP, lipase and urinalysis. Plan on abdominal and pelvic CT with contrast once creatinine has been returned. <Samantha Morrissey MD - Last Filed: 10/10/24 08:41> Reevaluation(s) Reevaluation #1: Patient noted to have normal white counts, CRP elevated [place] 1.6[place] [id number], basic panel within normal limits. Creatinine was 1.5. Will order 500 mL normal saline given recent contrast use. Total bilirubin was elevated at 3.4. I have asked for a direct bilirubin of from the lab. AST elevated at 128, ALT minimally elevated at 59, alk-phos elevated at 298 urinalysis is currently pending. Troponin is negative. <Samantha Morrissey MD - Last Filed: 10/10/24 08:41> Time of Reevaluation #2: 13:25 <Ngozi Cabezas MD - Last Filed: 10/04/24 20:36> Reevaluation #2: Spoke with patient regarding his CT results. Reviewed that he apparently is in liver failure or developing liver failure, we are not completely sure of the cause but I do have concerns with a biopsy of malignant melanoma per his report recently. I have added on a PT, PTT and ammonia level on him. Will talk to [facility] regarding his situation. He is reportedly scheduled to see Oncology for this biopsy of malignant melanoma on his liver this coming week. <Ngozi Cabezas MD - Last Filed: 10/04/24 20:36> Time of Reevaluation #3: 18:49 <Ngozi Cabezas MD - Last Filed: 10/04/24 20:36> Reevaluation #3: Updated patient, his and 2 sons were here. We discussed his situation with the acute liver failure. They understand the need further testing, he certainly needs specialty input. I did subsequently call [facility] back and spoke with the transfer center, they are just waiting bed placement, will call nursing staff back for nurse to nurse report once they have bed placement. <Ngozi Cabezas MD - Last Filed: 10/04/24 20:36> Consultations Consultation #1: Spoke with LOYD Smyth from [facility] triage center. Reviewed the case, spent 8 minutes on phone going over this. He has had a liver biopsy on August 31, fine needle aspirate showing malignancy most consistent with metastatic melanoma. We are pushing his CT images to [facility], will fax results. She is going to page Oncology for me to talk to. 2:48 p.m.: Did call [facility] back, confirmed they do have the CT there. They are reported the extremely busy. Will await a call back, reviewed with him that I would just wanted to make sure that they did have the CT as I know that sometimes can be a focus of problems with the imaging not making it through. She did pull up the images in they do have the CT there. 3:11 p.m.: Did speak with Dr. Abdi from GI at [facility]. She does think that this patient should be admitted, this could be spontaneous bacterial peritonitis. She thinks he should have a diagnostic paracentesis. Unfortunately, patient only has mild ascites and this is not likely something we are going to be able to assess further here. She does not want me to give him antibiotics, she would like him transferred there. Given that his platelets are at 87,000, she has similar concerns with his liver function. I do not have anything to compare to from recent values. They are working to get him transferred there, unclear if he will go to the ER or if they will find him bed placement. She does believe he is at risk for decompensation. We do not have a causative etiology at this time. If he is transferring to [facility], his acute hepatitis panel would be a send out for us and they will be much more likely to get this done. Will hold off on any further blood work than what has been done here now. Patient and his are updated. 5:12 p.m.: Have spoken with the medical scribe of the day Dr. Hinds. He is going to check with Oncology at [facility], otherwise patient will be accepted to [facility]. They will contact us back with this final disposition. Patient is overall accepted to [facility] but they may try to get Oncology acceptance. Will await their call back. Patient has remained stable. 6:09 p.m.: I have been contacted by a Dr. Raj Bangura a physician in hepatobiliary at [facility]. Did review the case with him. He agrees this patient needs to come to [facility]. He did look at the CT, is not necessarily seen anything obstructive for the jaundice that would be stentable. Patient could have diffuse infiltration of his liver from malignant melanoma. Patient is going to need to see medication oncology and GI. Did ask what they would potentially do not ext. He states they may consider ultrasound or MRI/MRCP to see if there is diffuse infiltration and further evaluate the liver. Ultimately the need to figure out the cause of the acute liver failure. Did review with him that I was not doing the acute hepatitis panel here as it is a send out, they will indeed be able to do it at [facility] much quicker. I did also ask the triage line why there have been so many phone calls on this. I have no issue trying to help get this patient facilitated to the appropriate spot but the number of phone calls and the amount of times that they have had to repeat this story seem to be excessive. <Ngozi Cabezas MD - Last Filed: 10/04/24 20:36> Time: 13:30 <Ngozi Cabezas MD - Last Filed: 10/04/24 20:36> Vital Signs Vital signs: Initial Vital Signs Temperature 95.2 F L 10/04/24 10:50 Temperature Source Temporal Artery Scan 10/04/24 10:50 Pulse Rate 103 H 10/04/24 10:50 Respiratory Rate 20 10/04/24 10:50 Blood Pressure 113/66 10/04/24 10:50 Blood Pressure Mean 81 10/04/24 10:50 Blood Pressure Position Sitting 10/04/24 10:50 Pulse Oximetry 96 10/04/24 10:50 Oxygen Delivery Method Room Air 10/04/24 10:50 Vital Signs Temperature 95.2 F L 10/04/24 10:50 Pulse Rate 103 H 10/04/24 10:50 Respiratory Rate 20 10/04/24 10:50 Blood Pressure 113/66 10/04/24 10:50 Pulse Oximetry 96 10/04/24 10:50 Oxygen Delivery Method Room Air 10/04/24 10:50 Temperature 96.8 F L 10/04/24 19:38 Pulse Rate 82 10/04/24 19:38 Respiratory Rate 14 10/04/24 19:38 Blood Pressure 140/86 H 10/04/24 19:38 Pulse Oximetry 96 10/04/24 19:38 Oxygen Delivery Method Room Air 10/04/24 19:38 <Samantha Morrissey MD - Last Filed: 10/10/24 08:41> Initial Vital Signs Temperature 95.2 F L 10/04/24 10:50 Temperature Source Temporal Artery Scan 10/04/24 10:50 Pulse Rate 103 H 10/04/24 10:50 Respiratory Rate 20 10/04/24 10:50 Blood Pressure 113/66 10/04/24 10:50 Blood Pressure Mean 81 10/04/24 10:50 Blood Pressure Position Sitting 10/04/24 10:50 Pulse Oximetry 96 10/04/24 10:50 Oxygen Delivery Method Room Air 10/04/24 10:50 Vital Signs Temperature 95.2 F L 10/04/24 10:50 Pulse Rate 103 H 10/04/24 10:50 Respiratory Rate 20 10/04/24 10:50 Blood Pressure 113/66 10/04/24 10:50 Pulse Oximetry 96 10/04/24 10:50 Oxygen Delivery Method Room Air 10/04/24 10:50 Temperature 96.8 F L 10/04/24 19:38 Pulse Rate 82 10/04/24 19:38 Respiratory Rate 14 10/04/24 19:38 Blood Pressure 140/86 H 10/04/24 19:38 Pulse Oximetry 96 10/04/24 19:38 Oxygen Delivery Method Room Air 10/04/24 19:38 <Ngozi Cabezas MD - Last Filed: 10/04/24 20:36> Medications Administered Medications: Discontinued Medications Generic Name Dose Route Start Last Admin Trade Name Freq PRN Reason Stop Dose Admin Sodium Chloride 500 mls @ 500 mls/hr 10/04/24 12:46 10/04/24 14:18 0.9 % Sodium Chloride 500 Ml IV 10/04/24 13:45 Infused .Q1H CASSIE Infusion <Samantha Morrissey MD - Last Filed: 10/10/24 08:41> Discontinued Medications Generic Name Dose Route Start Last Admin Trade Name Bel PRN Reason Stop Dose Admin Sodium Chloride 500 mls @ 500 mls/hr 10/04/24 12:46 10/04/24 14:18 0.9 % Sodium Chloride 500 Ml IV 10/04/24 13:45 Infused .Q1H [facility] Infusion <Ngozi Cabezas MD - Last Filed: 10/04/24 20:36> MDM - Abdominal Pain MDM Narrative Medical decision making narrative: 1. Abdominal pain with elevated liver function tests-abdominal CT with contrast currently pending. 2. Disposition-this patient was signed out to my colleague for review of remaining labs and abdominal CT results. <Samantha Morrissey MD - Last Filed: 10/10/24 08:41> Medical Records Attestation: I reviewed the patient's medical records. <Samantha Morrissey MD - Last Filed: 10/10/24 08:41> Lab Data Attestation: I reviewed the patient's lab results. <Samantha Morrissey MD - Last Filed: 10/10/24 08:41> Labs: Lab Results 10/04/24 10/04/24 10/04/24 Range/Units 11:09 11:10 12:01 WBC 8.45 (4.50-11.00) K/uL RBC 4.89 (4.30-5.90) m/uL Hgb 15.4 (13.5-17.5) gm/dL Hct 46.2 (37.0-53.0) % MCV 95 (80-100) fL MCH 32 (26-34) pg MCHC 33 (32-36) gm/dL RDW Coeff of Sandra 14.5 (11.5-15.5) % Plt Count 87 L (140-440) K/uL Neut % (Auto) 74.8 H (42.0-72.0) % Lymph % (Auto) 12.4 L (20-44) % [place] % (Auto) 10.2 (0.0-11.0) % Eos % (Auto) 1.3 (0.0-7.0) % Baso % (Auto) 0.9 (0.0-3.0) % Neut # (Auto) 6.30 (1.7-7.0) K/uL Lymph # (Auto) 1.00 (0.90-2.90) K/uL [place] # (Auto) 0.90 (0.00-0.90) K/UL Eos # (Auto) 0.11 (0.00-0.50) K/uL Baso # (Auto) 0.08 (0.00-0.30) K/uL Abs Immat Gran (auto) 0.03 (0.00-0.30) K/uL Imm/Tot Granulo (auto) 0.4 % Diff Slide Review Acceptable Review (Acceptable) INR 1.00 (0.91-1.10) APTT 26 (23-33) Seconds Sodium 140 (135-149) mmol/L Potassium 5.0 (3.6-5.1) mmol/L Chloride 108 (96-114) mmol/L Carbon Dioxide 20 (20-32) mmol/L Anion Gap 12 (7-15) mEq/L BUN 22 (7-30) mg/dL Creatinine 1.5 (0.5-1.5) mg/dL Estimated Creat Clear 47.42 Estimated GFR 49 ml/min Glucose 109 (60-115) mg/dL Lactate 1.8 (0.5-1.9) mmol/L Calcium 9.6 (8.4-10.6) mg/dL Total Bilirubin 3.4 H (0.1-1.5) mg/dL Direct Bilirubin 2.7 H (0.0-0.5) mg/dL AST 128 H (12-35) U/L ALT 59 H (4-50) U/L Alkaline Phosphatase 298 H (40-150) U/L Ammonia (13.1-30.0) umol/L C-Reactive Protein 1.6 H (0.5-1.0) mg/dL Total Protein 7.8 (6.0-8.3) g/dL Albumin 3.9 (3.3-5.0) g/dL Lipase 121 (23-300) U/L Urine Color Dark yellow (Yellow) Urine Appearance Turbid A (Clear) Urine pH 5.0 (5.0-8.5) Ur Specific [place] 1.020 (1.000-1.030) Urine Protein 2+ A (Negative) Urine Glucose (UA) Negative (Negative) Urine Ketones Trace A (Negative) Urine Blood Trace-lysed A (Negative) Urine Nitrite Negative (Negative) Urine Bilirubin 3+ A (Negative) Urine Urobilinogen 1.0 (0.2-1.0) Ur Leukocyte Esterase Negative (Negative) Urine RBC 0-2 (0-2) Urine WBC 0-2 (0-5) Ur Squamous Epith Cells None (None-Few) Urine Bacteria Many A (None) Coarse Granular Casts Many A (None) Lab Acknowledgement Test Added POC Troponin I 0.01 (0.01-0.04) ng/ml 10/04/24 10/04/24 10/04/24 Range/Units 12:38 13:28 13:45 WBC (4.50-11.00) K/uL RBC (4.30-5.90) m/uL Hgb (13.5-17.5) gm/dL Hct (37.0-53.0) % MCV (80-100) fL MCH (26-34) pg MCHC (32-36) gm/dL RDW Coeff of Sandra (11.5-15.5) % Plt Count (140-440) K/uL Neut % (Auto) (42.0-72.0) % Lymph % (Auto) (20-44) % [place] % (Auto) (0.0-11.0) % Eos % (Auto) (0.0-7.0) % Baso % (Auto) (0.0-3.0) % Neut # (Auto) (1.7-7.0) K/uL Lymph # (Auto) (0.90-2.90) K/uL [place] # (Auto) (0.00-0.90) K/UL Eos # (Auto) (0.00-0.50) K/uL Baso # (Auto) (0.00-0.30) K/uL Abs Immat Gran (auto) (0.00-0.30) K/uL Imm/Tot Granulo (auto) % Diff Slide Review (Acceptable) INR (0.91-1.10) APTT (23-33) Seconds Sodium (135-149) mmol/L Potassium (3.6-5.1) mmol/L Chloride (96-114) mmol/L Carbon Dioxide (20-32) mmol/L Anion Gap (7-15) mEq/L BUN (7-30) mg/dL Creatinine (0.5-1.5) mg/dL Estimated Creat Clear Estimated GFR ml/min Glucose (60-115) mg/dL Lactate (0.5-1.9) mmol/L Calcium (8.4-10.6) mg/dL Total Bilirubin (0.1-1.5) mg/dL Direct Bilirubin (0.0-0.5) mg/dL AST (12-35) U/L ALT (4-50) U/L Alkaline Phosphatase (40-150) U/L Ammonia < 8.7 L (13.1-30.0) umol/L C-Reactive Protein (0.5-1.0) mg/dL Total Protein (6.0-8.3) g/dL Albumin (3.3-5.0) g/dL Lipase (23-300) U/L Urine Color (Yellow) Urine Appearance (Clear) Urine pH (5.0-8.5) Ur Specific [place] (1.000-1.030) Urine Protein (Negative) Urine Glucose (UA) (Negative) Urine Ketones (Negative) Urine Blood (Negative) Urine Nitrite (Negative) Urine Bilirubin (Negative) Urine Urobilinogen (0.2-1.0) Ur Leukocyte Esterase (Negative) Urine RBC (0-2) Urine WBC (0-5) Ur Squamous Epith Cells (None-Few) Urine Bacteria (None) Coarse Granular Casts (None) Lab Acknowledgement Test Added Test Added POC Troponin I (0.01-0.04) ng/ml <Samantha Morrissey MD - Last Filed: 10/10/24 08:41> Lab Results 10/04/24 10/04/24 10/04/24 Range/Units 11:09 11:10 12:01 WBC 8.45 (4.50-11.00) K/uL RBC 4.89 (4.30-5.90) m/uL Hgb 15.4 (13.5-17.5) gm/dL Hct 46.2 (37.0-53.0) % MCV 95 (80-100) fL MCH 32 (26-34) pg MCHC 33 (32-36) gm/dL RDW Coeff of Sandra 14.5 (11.5-15.5) % Plt Count 87 L (140-440) K/uL Neut % (Auto) 74.8 H (42.0-72.0) % Lymph % (Auto) 12.4 L (20-44) % [place] % (Auto) 10.2 (0.0-11.0) % Eos % (Auto) 1.3 (0.0-7.0) % Baso % (Auto) 0.9 (0.0-3.0) % Neut # (Auto) 6.30 (1.7-7.0) K/uL Lymph # (Auto) 1.00 (0.90-2.90) K/uL [place] # (Auto) 0.90 (0.00-0.90) K/UL Eos # (Auto) 0.11 (0.00-0.50) K/uL Baso # (Auto) 0.08 (0.00-0.30) K/uL Abs Immat Gran (auto) 0.03 (0.00-0.30) K/uL Imm/Tot Granulo (auto) 0.4 % Diff Slide Review Acceptable Review (Acceptable) INR 1.00 (0.91-1.10) APTT 26 (23-33) Seconds Sodium 140 (135-149) mmol/L Potassium 5.0 (3.6-5.1) mmol/L Chloride 108 (96-114) mmol/L Carbon Dioxide 20 (20-32) mmol/L Anion Gap 12 (7-15) mEq/L BUN 22 (7-30) mg/dL Creatinine 1.5 (0.5-1.5) mg/dL Estimated Creat Clear 47.42 Estimated GFR 49 ml/min Glucose 109 (60-115) mg/dL Lactate 1.8 (0.5-1.9) mmol/L Calcium 9.6 (8.4-10.6) mg/dL Total Bilirubin 3.4 H (0.1-1.5) mg/dL Direct Bilirubin 2.7 H (0.0-0.5) mg/dL AST 128 H (12-35) U/L ALT 59 H (4-50) U/L Alkaline Phosphatase 298 H (40-150) U/L Ammonia (13.1-30.0) umol/L C-Reactive Protein 1.6 H (0.5-1.0) mg/dL Total Protein 7.8 (6.0-8.3) g/dL Albumin 3.9 (3.3-5.0) g/dL Lipase 121 (23-300) U/L Urine Color Dark yellow (Yellow) Urine Appearance Turbid A (Clear) Urine pH 5.0 (5.0-8.5) Ur Specific [place] 1.020 (1.000-1.030) Urine Protein 2+ A (Negative) Urine Glucose (UA) Negative (Negative) Urine Ketones Trace A (Negative) Urine Blood Trace-lysed A (Negative) Urine Nitrite Negative (Negative) Urine Bilirubin 3+ A (Negative) Urine Urobilinogen 1.0 (0.2-1.0) Ur Leukocyte Esterase Negative (Negative) Urine RBC 0-2 (0-2) Urine WBC 0-2 (0-5) Ur Squamous Epith Cells None (None-Few) Urine Bacteria Many A (None) Coarse Granular Casts Many A (None) Lab Acknowledgement Test Added POC Troponin I 0.01 (0.01-0.04) ng/ml 10/04/24 10/04/24 10/04/24 Range/Units 12:38 13:28 13:45 WBC (4.50-11.00) K/uL RBC (4.30-5.90) m/uL Hgb (13.5-17.5) gm/dL Hct (37.0-53.0) % MCV (80-100) fL MCH (26-34) pg MCHC (32-36) gm/dL RDW Coeff of Sandra (11.5-15.5) % Plt Count (140-440) K/uL Neut % (Auto) (42.0-72.0) % Lymph % (Auto) (20-44) % [place] % (Auto) (0.0-11.0) % Eos % (Auto) (0.0-7.0) % Baso % (Auto) (0.0-3.0) % Neut # (Auto) (1.7-7.0) K/uL Lymph # (Auto) (0.90-2.90) K/uL [place] # (Auto) (0.00-0.90) K/UL Eos # (Auto) (0.00-0.50) K/uL Baso # (Auto) (0.00-0.30) K/uL Abs Immat Gran (auto) (0.00-0.30) K/uL Imm/Tot Granulo (auto) % Diff Slide Review (Acceptable) INR (0.91-1.10) APTT (23-33) Seconds Sodium (135-149) mmol/L Potassium (3.6-5.1) mmol/L Chloride (96-114) mmol/L Carbon Dioxide (20-32) mmol/L Anion Gap (7-15) mEq/L BUN (7-30) mg/dL Creatinine (0.5-1.5) mg/dL Estimated Creat Clear Estimated GFR ml/min Glucose (60-115) mg/dL Lactate (0.5-1.9) mmol/L Calcium (8.4-10.6) mg/dL Total Bilirubin (0.1-1.5) mg/dL Direct Bilirubin (0.0-0.5) mg/dL AST (12-35) U/L ALT (4-50) U/L Alkaline Phosphatase (40-150) U/L Ammonia < 8.7 L (13.1-30.0) umol/L C-Reactive Protein (0.5-1.0) mg/dL Total Protein (6.0-8.3) g/dL Albumin (3.3-5.0) g/dL Lipase (23-300) U/L Urine Color (Yellow) Urine Appearance (Clear) Urine pH (5.0-8.5) Ur Specific [place] (1.000-1.030) Urine Protein (Negative) Urine Glucose (UA) (Negative) Urine Ketones (Negative) Urine Blood (Negative) Urine Nitrite (Negative) Urine Bilirubin (Negative) Urine Urobilinogen (0.2-1.0) Ur Leukocyte Esterase (Negative) Urine RBC (0-2) Urine WBC (0-5) Ur Squamous Epith Cells (None-Few) Urine Bacteria (None) Coarse Granular Casts (None) Lab Acknowledgement Test Added Test Added POC Troponin I (0.01-0.04) ng/ml <Ngozi Cabezas MD - Last Filed: 10/04/24 20:36> Imaging Data Chest x-ray: Attestation: I have reviewed the pertinent imaging results. <Samantha Morrissey MD - Last Filed: 10/10/24 08:41> Radiologist's impression: Cardiovasculature and mediastinum: Heart size is normal. Unremarkable mediastinum. Lungs and pleural spaces: Lungs are clear. No sign of infiltrate or mass. No sign of pleural effusion. No pneumothorax. Bones and soft tissues: No significant findings. IMPRESSION: No acute findings and no significant changes from the prior exam. <Samantha Morrissey MD - Last Filed: 10/10/24 08:41> CT scan - abdomen: Attestation: I have reviewed the pertinent imaging results. <Ngozi Cabezas MD - Last Filed: 10/04/24 20:36> Radiologist's impression: Patient: SOLO CALI Facility:?[facility] Patient ID:?[id number] Site Patient [id number]:?[id number]. Site :?[id number] Study:?CT-Abdomen/Pelvis W/114CC [id number]/30/2025 12:51:18 PM Ordering Physician:?Ghanshyam Singh Final Report: Indication: Abdominal pain, nausea and distension Technique: Volumetric multidetector CT images of the abdomen and pelvis were obtained after the administration of intravenous contrast. 114 cc Isovue 370 low osmolar intravenous contrast Comparison: CT abdomen and pelvis with contrast December 19, 2021 Findings: There is minimal basilar atelectasis and parenchymal scar within the rviun-eiabqsd-sqae-left lung base. Interval development of marked hepatomegaly and hepatic steatosis with trace perihepatic ascites. No obvious focal abnormality. The portal vein is patent. The gallbladder is unremarkable without evidence of radiopaque calculus. There is no significant common biliary ductal dilatation or abrupt cut off. The spleen is normal in enhancement and size. The stomach and duodenum are grossly unremarkable. The pancreas is normal in enhancement without significant atrophy. The adrenal glands are unremarkable. The kidneys demonstrate preserved corticomedullary differentiation without evidence of obstructive uropathy. There is a mild amount of stool seen throughout the colon. There is mild distal colonic diverticulosis. Minimal enteric contrast is seen within the central small bowel. The appendix is unremarkable. Mildly reactive epigastric and portacaval lymph nodes are appreciated. No other evidence of mesenteric adenopathy. The aorta is nonaneurysmal. There is no significant atherosclerotic disease appreciated. The solid pelvic viscera are grossly unremarkable. Minimal likely ascites fluid is seen within the central pelvis. No evidence of intra-abdominal free air. The anterior abdominal wall is intact without significant hernias. The lumbar vertebral body heights are grossly maintained with minimal endplate Schmorl`s defects. No significant spondylolisthesis or displaced fracture. Impression: 1. Interval development of moderate to severe hepatomegaly and hepatic steatosis with trace perihepatic fluid as well as likely mild early ascites fluid within the central pelvis. Correlate with history of liver failure/hepatitis. 2. Tqkb-uq-xmuxtmbq stool seen throughout the colon with distal colonic diverticulosis without definite evidence of diverticulitis. 3. Otherwise, no definite evidence of acute intra-abdominal abnormality. Please note that all CT scans at this facility use dose modulation, iterative reconstruction, and/or weight-based dosing when appropriate to reduce radiation dose to as low as reasonably achievable. Dictated by Darell Hartley MD @ 10/04/2024 1:07:47 PM (Electronic Signature) <Ngozi Cabezas MD - Last Filed: 10/04/24 20:36> ECG Data Attestation: I personally reviewed and interpreted this ECG as follows: <Samantha Morrissey MD - Last Filed: 10/10/24 08:41> ECG interpretation date: 10/04/24 <Samantha Morrissey MD - Last Filed: 10/10/24 08:41> Interpretation: EKG by my read shows sinus rhythm at a rate of 79. I do not note any acute ST or T-wave changes. Normal QT and OK intervals. <Samantha Morrissey MD - Last Filed: 10/10/24 08:41> Discharge Plan Discharge Clinical Impression: Acute hepatic failure, Jaundice <Samantha Morrissey MD - Last Filed: 10/10/24 08:41> Patient Disposition: [facility] <Samantha Morrissey MD - Last Filed: 10/10/24 08:41> Discharge Location: [facility] <Samantha Morrissey MD - Last Filed: 10/10/24 08:41> Condition: Stable <Samantha Morrissey MD - Last Filed: 10/10/24 08:41> Prescriptions: No Action tadalafil 5 mg tablet 5 mg PO DAILY Qty: 30 5RF amlodipine 10 mg tablet 10 mg PO QDAY Qty: 90 3RF atorvastatin 80 mg tablet See Rx Instructions .ROUTE .COMPLEX Qty: 90 3RF Dose Instruction: TAKE ONE TABLET BY MOUTH DAILY AT BEDTIME Rx Instructions: TAKE ONE TABLET BY MOUTH DAILY AT BEDTIME lisinopril 40 mg tablet See Rx Instructions .ROUTE .COMPLEX Qty: 90 3RF Dose Instruction: TAKE ONE TABLET BY MOUTH DAILY Rx Instructions: TAKE ONE TABLET BY MOUTH DAILY aspirin 81 mg tablet,chewable 81 mg PO DAILY omega 2-ptg-usx-fish oil [Fish Oil] 1,000 mg (120 mg-180 mg) capsule 1 cap PO QDAY cholecalciferol (vitamin D3) 10 mcg (400 unit) capsule 10 mcg PO QDAY glucosamine sulfate [Glucosamine] 500 mg tablet 500 mg PO QDAY Rx Instructions: administer with a meal Galzin 25 mg (zinc) capsule 25 mg PO QDAY garlic 200 mg tablet 200 mg PO QDAY <Samantha Morrissey MD - Last Filed: 10/10/24 08:41> Stand Alone Forms: [employer] Info Instructions <Samantha Morrissey MD - Last Filed: 10/10/24 08:41>
--- NOTE | 2024-10-04 11:09 | CRLHL7_ITS ---
For Patients: As a result of the Century Cures Act, medical imaging exams and procedure reports are released immediately into your electronic medical record. You may view this report before your referring provider. If you have questions, please contact your health care provider. Indication: Abdominal pain, nausea and distension Technique: Volumetric multidetector CT images of the abdomen and pelvis were obtained after the administration of intravenous contrast. 114 cc Isovue 370 low osmolar intravenous contrast Comparison: CT abdomen and pelvis with contrast December 19, 2021 Findings: There is minimal basilar atelectasis and parenchymal scar within the eugog-mqkwiux-dghk-left lung base. Interval development of marked hepatomegaly and hepatic steatosis with trace perihepatic ascites. No obvious focal abnormality. The portal vein is patent. The gallbladder is unremarkable without evidence of radiopaque calculus. There is no significant common biliary ductal dilatation or abrupt cut off. The spleen is normal in enhancement and size. The stomach and duodenum are grossly unremarkable. The pancreas is normal in enhancement without significant atrophy. The adrenal glands are unremarkable. The kidneys demonstrate preserved corticomedullary differentiation without evidence of obstructive uropathy. There is a mild amount of stool seen throughout the colon. There is mild distal colonic diverticulosis. Minimal enteric contrast is seen within the central small bowel. The appendix is unremarkable. Mildly reactive epigastric and portacaval lymph nodes are appreciated. No other evidence of mesenteric adenopathy. The aorta is nonaneurysmal. There is no significant atherosclerotic disease appreciated. The solid pelvic viscera are grossly unremarkable. Minimal likely ascites fluid is seen within the central pelvis. No evidence of intra-abdominal free air. The anterior abdominal wall is intact without significant hernias. The lumbar vertebral body heights are grossly maintained with minimal endplate Schmorl`s defects. No significant spondylolisthesis or displaced fracture. Impression: 1. Interval development of moderate to severe hepatomegaly and hepatic steatosis with trace perihepatic fluid as well as likely mild early ascites fluid within the central pelvis. Correlate with history of liver failure/hepatitis. 2. Btcd-ha-usuystef stool seen throughout the colon with distal colonic diverticulosis without definite evidence of diverticulitis. 3. Otherwise, no definite evidence of acute intra-abdominal abnormality. Please note that all CT scans at this facility use dose modulation, iterative reconstruction, and/or weight-based dosing when appropriate to reduce radiation dose to as low as reasonably achievable. Dictated by Darell Hartley MD @ 10/04/2024 1:07:47 PM (Electronically Signed)
[2024-10-04 11:18] LABS: Basophils Absolute Auto 0.08 K/uL (0.00-0.30); Basophils Percent Auto 0.9 % (0.0-3.0); Eosinophils Absolute Auto 0.11 K/uL (0.00-0.50); Eosinophils Percent Auto 1.3 % (0.0-7.0); Hematocrit 46.2 % (37.0-53.0); Hemoglobin* 15.4 gm/dL (13.5-17.5); Immature Granulocytes Abs Auto 0.03 K/uL (0.00-0.30); Immature Granulocytes Pct Auto 0.4 %; Lymphocytes Percent Auto 12.4 % (20-44); Mean Corpuscular HGB Conc 33 gm/dL (32-36); Mean Corpuscular Hemoglobin 32 pg (26-34); Mean Corpuscular Volume 95 fL (80-100); Monocytes Percent Auto 10.2 % (0.0-11.0); Neutrophils Percent Auto 74.8 % (42.0-72.0); Platelet Count* 87 K/uL (140-440); RDW Coefficient of Variation % 14.5 % (11.5-15.5); Red Blood Count 4.89 m/uL (4.30-5.90); White Blood Count* 8.45 K/uL (4.50-11.00)
[2024-10-04 11:23] LABS: Lactate* 1.8 mmol/L (0.5-1.9)
[2024-10-04 11:26] LABS: Troponin, Point-of-Care* 0.01 ng/ml (0.01-0.04)
[2024-10-04 11:46] LABS: Albumin* 3.9 g/dL (3.3-5.0); Chloride* 108 mmol/L (96-114); Sodium* 140 mmol/L (135-149)
[2024-10-04 11:49] LABS: Alanine Aminotransferase* 59 U/L (4-50); Alkaline Phosphatase* 298 U/L (40-150); Anion Gap 12 mEq/L (7-15); Aspartate Amino Transferase* 128 U/L (12-35); Bilirubin Total* 3.4 mg/dL (0.1-1.5); Blood Urea Nitrogen* 22 mg/dL (7-30); Carbon Dioxide* 20 mmol/L (20-32); Creatinine* 1.5 mg/dL (0.5-1.5); Est. Creatinine Clearance* 47.42; Estimated Glomerular Filt Rate 49 ml/min; Total Protein* 7.8 g/dL (6.0-8.3)
[2024-10-04 11:50] LABS: Calcium* 9.6 mg/dL (8.4-10.6); Glucose* 109 mg/dL (60-115)
[2024-10-04 11:52] LABS: C Reactive Protein* 1.6 mg/dL (0.5-1.0)
--- NOTE | 2024-10-04 11:53 | CRLHL7_ITS ---
For Patients: As a result of the Century Cures Act, medical imaging exams and procedure reports are released immediately into your electronic medical record. You may view this report before your referring provider. If you have questions, please contact your health care provider. INDICATION: Epigastric pain TECHNIQUE: Chest 1 view COMPARISON: Same day CT abdomen pelvis, chest radiograph 12/19/2021 FINDINGS: Cardiovasculature and mediastinum: Heart size is normal. Unremarkable mediastinum. Lungs and pleural spaces: Lungs are clear. No sign of infiltrate or mass. No sign of pleural effusion. No pneumothorax. Bones and soft tissues: No significant findings. IMPRESSION: No acute findings and no significant changes from the prior exam. Dictated by Sarah Guerra MD @ 10/04/2024 12:58:21 PM (Electronically Signed)
[2024-10-04 11:57] LABS: Slide Review Reflex Yes
[2024-10-04 11:58] LABS: Slide Review Acceptable Review (Acceptable)
[2024-10-04 12:16] LABS: Lipase* 121 U/L (23-300)
[2024-10-04 12:58] LABS: Bilirubin Direct* 2.7 mg/dL (0.0-0.5)
[2024-10-04] MEDS: 0.9 % SODIUM CHLORIDE 500 ML 500 ML IV (13:02)
[2024-10-04 14:03] LABS: Appearance Urine Turbid (Clear); Bilirubin Urine 3+ (Negative); Color Urine Dark yellow (Yellow); Glucose Urine Negative (Negative); Ketones Urine Trace (Negative)
[2024-10-04 14:04] LABS: Bacteria Urine Many; Blood Urine Trace-lysed (Negative); Coarse Granular Casts Urine Many; Leukocyte Esterase Urine Negative (Negative); Nitrite Urine Negative (Negative); Partial Thromboplastin Time* 26 Seconds (23-33); Protein Urine 2+ (Negative); RBC Urine 0-2 (0-2); WBC Urine 0-2 (0-5)
[2024-10-04 15:09] LABS: Ammonia* < 8.7 umol/L (13.1-30.0)
== END 2024-10-04 20:47 | disposition short-term general hospital (02) ==
PROVIDERS: Family Medicine; Emergency Provider Family Medicine; PCP Family Medicine
DX: K72.90 Hepatic failure, unspecified without coma (principal)
CPT/HCPCS: 36415; 71045; 74177; 80053; 81001; 82140; 82248; 83605; 83690; 84484; 85025; 85610; 85730; 86140; 87086; 93005; 99285; J7030; Q9967